=== PATIENT | male | born 1940 | race Caucasian/White ===

== ENCOUNTER 2016-11-21 19:48 | Inpatient (IN) ==
[2016-11-21] MEDS ORDERED: Ipratropium/Albuterol Neb 3 ML IH ONE (20:13)
--- NOTE | 2016-11-21 20:15 | Emergency Department Note ---
Disposition Clinical Impression: Acute exacerbation of chronic obstructive airways disease, Congestive heart failure, Chest pain Disposition: Admitted As Inpatient Condition: Good Referrals: NO,PCP [Primary Care Provider] - Forms: ED Satisfaction Letter Time of Disposition: 22:29 General Adult HPI - General Chief complaint: ED Shortness of Breath/Dyspnea Stated complaint: "CP/SOB" Time Seen by Provider: 11/21/16 20:08 Source: patient, family Mode of arrival: ambulatory Limitations: no limitations Nursing Notes Reviewed: Yes Vital Signs Reviewed: Yes - History of Present Illness HPI Narrative: This is a 76-year-old male who presents with chest tightness, congestion, and a productive cough. Patient is not running any fevers. Pt does have body aches. Patient states he has been feeling bad since Monday but has gotten worse. Patient is also undergoing extensive testing with his right lower extremity he had vein stripping with Dr. 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 Onset (ago): day(s) Pain Scale: 8 - Related Data Home Medications Medication Instructions Recorded Confirmed Citalopram [CeleXA] 40 mg PO DAILY 05/12/15 11/21/16 Clopidogrel [Plavix] 75 mg PO DAILY 05/12/15 11/21/16 Nitroglycerin [Nitrostat] 0.4 mg SL Q5M PRN 05/12/15 11/21/16 Aspirin Enteric Coated [Aspirin EC] 81 mg PO DAILY 05/23/15 11/21/16 Lipase/Protease/Amylase 6,000 unit PO TID 05/23/15 11/21/16 [Pancrelipase Dr 5,000 Unit Cap] Metoprolol [Lopressor] 25 mg PO BID 12/17/15 11/21/16 Promethazine [Phenergan] 25 mg PO TID PRN 12/17/15 11/21/16 Albuterol Sulfate [Proair 1 puff IN Q6H PRN 06/03/16 11/21/16 Respiclick] Omeprazole [PriLOSEC] 20 mg PO DAILY 06/03/16 11/21/16 Nystatin Cream [Mycostatin Cream] 1 appl TP BID 11/21/16 11/21/16 Oxycodone HCl [Oxycodone HCl] 15 mg PO Q6H PRN 11/21/16 11/21/16 Pentoxifylline [TRENtal] 400 mg PO BID 11/21/16 11/21/16 Previous Rx's Medication Instructions Recorded Alprazolam [Xanax 1 MG Tablet] 1 mg PO TID PRN #30 tablet 08/22/15 Allergies Allergy/AdvReac Type Severity Reaction Status Date / Time Hydromorphone AdvReac Hallucinati Verified 11/21/16 20:02 ng rosuvastatin [From Crestor] AdvReac Muscle Pain Verified 11/21/16 20:02 Gtwkkcg-[id number]-Ogs Reductase AdvReac Muscle Pain Verified 11/21/16 22:15 Inhibitor [Statins] All systems ED: reviewed and negative except as stated. Constitutional: Reports: weakness. Denies: fever, chills, weight change Eyes: Denies: eye pain, eye discharge, vision change ENT ED: Denies: ear pain, throat pain, dental pain, hearing loss, epistaxis, congestion, dysphagia Cardiovascular: Reports: chest pain. Denies: palpitations, dyspnea on exertion , edema, syncope Respiratory: Reports: cough, dyspnea, wheezes. Denies: hemoptysis, stridor Gastrointestinal: Denies: abdominal pain, nausea, vomiting, diarrhea, constipation, hematemesis, melena, hematochezia Genitourinary: Denies: urgency, dysuria, frequency, hematuria Musculoskeletal: Reports: myalgia, other (chronic RLE pain). Denies: back pain , neck pain, arthralgia Integumentary: Denies: rash, abrasion, lesions Neurological: Denies: headache, weakness, numbness, paresthesias, confusion, abnormal gait, vertigo Psychiatric: Denies: anxiety, depression, suicidal thoughts, homicidal thoughts , auditory hallucinations, visual hallucinations Endocrine: Reports: fatigue Hematological/Lymphatic: Denies: easy bleeding, easy bruising Allergic/Immunologic: Denies: facial swelling, urticaria Past Medical History - Past Medical History Attestation: Yes The following information was validated with the patient. Source: patient Medical history: Reports: arthritis, atrial fibrillation, cancer, CHF, COPD, coronary artery disease, DVT, diabetes, GERD, hyperlipidemia, hypertension, myocardial infarction, peripheral artery disease, pulmonary embolus, venous stasis, other Surgical history: Reports: angioplasty/stent, coronary bypass (CABG), LE vascular intervention, vascular surgery, other Psychiatric history: Reports: anxiety, depression - Social History Smoking Status: Former smoker Smokeless Tobacco Status: No Alcohol use: Reports: none Drug use: Reports: none Physical Exam - General Limitations: no limitations General appearance: alert, other (appears uncomfortable) - Head Head exam: atraumatic, normocephalic, normal inspection - Eye Eye exam: Present: normal appearance, PERRL, EOMI - ENT ENT exam: normal exam, normal oropharynx, mucous membranes moist - Expanded ENT Exam External ear exam: Present: normal external inspection Mouth exam: Present: normal external inspection Teeth exam: Present: normal inspection Throat exam: Present: normal inspection - Neck Neck exam: Present: normal inspection, full ROM, trachea midline - Chest Chest inspection: Present: normal inspection, symmetric chest wall rise - Respiratory Respiratory exam: Present: wheezes, other (rhonchi) - Cardiovascular Cardiovascular exam: Present: regular rate, normal rhythm, normal heart sounds - Abdominal Exam Abdominal exam: Present: soft, Non-Tender. Absent: tenderness, distention, guarding, rebound, rigidity - Extremities Exam Extremities exam: Present: full ROM, tenderness (chronic to RLE and R leg is wrapped) - Expanded Upper Extremity Exam Shoulder exam: Present: normal inspection, full ROM Arm exam: Present: normal inspection, full ROM Elbow exam: Present: normal inspection, full ROM Forearm/Wrist exam: Present: normal inspection, full ROM Hand exam: Present: normal inspection, full ROM Vascular exam: Normal: capillary refill, radial pulse - Back Exam Back exam: Present: normal inspection, full ROM. Absent: tenderness - Neurological Exam Neurological exam: Present: alert, oriented X3 - Expanded Neurological Exam Patient oriented to: Present: person, place, time Coma Scale Eye Opening: Spontaneous Coma Scale Motor Response: Obeys Commands Coma Scale Verbal Response: Oriented Coma Scale Total: 15 - Psychiatric Psychiatric exam: Present: normal affect, normal mood - Skin Skin exam: Present: warm, dry, intact, normal color Course - Consultations Consultation #1: I spoke with the hospitalist Dr. Brennon lawsonay to admit. Time: 22:28 Vital Signs Temperature 98.0 F 11/21/16 19:57 Pulse Rate 66 11/21/16 19:57 Respiratory Rate 20 11/21/16 19:57 Blood Pressure 126/79 11/21/16 19:57 O2 Sat by Pulse Oximetry 98 11/21/16 19:57 Temperature 98.0 F 11/21/16 19:57 Pulse Rate 66 11/21/16 19:57 Respiratory Rate 18 11/21/16 20:30 Blood Pressure 126/79 11/21/16 19:57 O2 Sat by Pulse Oximetry 97 11/21/16 20:30 Oxygen Delivery Oxygen Delivery Room Air Medical Decision Making - Medical Records Medical records reviewed: Yes I reviewed the patient's medical records. - Lab Data Lab results reviewed: Yes I reviewed the patient's lab results. Result diagrams: 11/21/16 20:10 11/21/16 20:10 Lab Results 11/21/16 11/21/16 11/21/16 Range/Units 20:10 20:10 20:10 WBC 5.5 (4.3-11.1) K/mcL RBC 4.24 (4.19-5.50) M/mcL Hgb 12.7 L (12.9-16.9) g/dL Hct 40.0 (37.5-50.1) % MCV 94.3 (83.0-100.0) fL MCH 30.0 (28.0-33.3) pg MCHC 31.8 (31.6-35.5) g/dL RDW 13.0 (11.5-14.5) % Plt Count 187 (140-400) K/mcL MPV 10.5 (9.4-12.4) fL Immature Gran % 0.2 (0-4) % Seg Neutrophils % 57.3 % Lymphocytes % 27.7 % Monocytes % 9.6 % Eosinophils % 4.7 % Basophils % 0.5 % Neutrophils # 3.2 (1.6-8.9) K/mcL Lymphocytes # 1.5 (0.6-4.6) K/mcL Monocytes # 0.5 (0.0-1.3) K/mcL Eosinophils # 0.3 (0.0-0.6) K/mcL Basophils # 0.0 (0.0-0.2) K/mcL Immature Plt Fraction 7.0 H (1.1-6.1) % PT 12.8 H (9.4-12.1) Seconds INR 1.2 APTT 31.3 (26.0-36.0) Seconds Sodium 139 (136-145) mEq/L Potassium 4.9 H (3.5-4.5) mEq/L Chloride 105 (98-109) mEq/L Carbon Dioxide 27 (19-29) mEq/L BUN 23 (8-26) mg/dL Creatinine 1.39 H (0.72-1.25) mg/dL Est GFR ( Amer) > 60 (> 60) Est GFR (Non-Af Amer) 50 L (> 60) BUN/Creatinine Ratio 17 (6-26) Glucose 78 (70-99) mg/dL Calculated Osmolality 291 (280-300) Calcium 9.5 (8.6-10.8) mg/dL Troponin I (0-0.03) ng/mL B-Natriuretic Peptide (0-100) pg/mL 11/21/16 11/21/16 Range/Units 20:10 20:38 WBC (4.3-11.1) K/mcL RBC (4.19-5.50) M/mcL Hgb (12.9-16.9) g/dL Hct (37.5-50.1) % MCV (83.0-100.0) fL MCH (28.0-33.3) pg MCHC (31.6-35.5) g/dL RDW (11.5-14.5) % Plt Count (140-400) K/mcL MPV (9.4-12.4) fL Immature Gran % (0-4) % Seg Neutrophils % % Lymphocytes % % Monocytes % % Eosinophils % % Basophils % % Neutrophils # (1.6-8.9) K/mcL Lymphocytes # (0.6-4.6) K/mcL Monocytes # (0.0-1.3) K/mcL Eosinophils # (0.0-0.6) K/mcL Basophils # (0.0-0.2) K/mcL Immature Plt Fraction (1.1-6.1) % PT (9.4-12.1) Seconds INR APTT (26.0-36.0) Seconds Sodium (136-145) mEq/L Potassium (3.5-4.5) mEq/L Chloride (98-109) mEq/L Carbon Dioxide (19-29) mEq/L BUN (8-26) mg/dL Creatinine (0.72-1.25) mg/dL Est GFR ( Amer) (> 60) Est GFR (Non-Af Amer) (> 60) BUN/Creatinine Ratio (6-26) Glucose (70-99) mg/dL Calculated Osmolality (280-300) Calcium (8.6-10.8) mg/dL Troponin I 0.00 (0-0.03) ng/mL B-Natriuretic Peptide 605 H (0-100) pg/mL - Radiology Data Radiology results reviewed: Yes I reviewed the patient's radiology results. - EKG Data EKG #1 EKG attestation: Yes I reviewed and interpreted this EKG. EKG shows normal: sinus rhythm Rate: normal Rhythm: NSR, PAC's Portia/QRS: RBBB Interpretation: nonspecific ST-T wave changes
[2016-11-21] MEDS ORDERED: Aspirin 325 MG TABLET PO ONE (20:17)
[2016-11-21 20:19] LABS: Basophils % 0.5 %; Eosinophils # 0.3 K/mcL (0.0-0.6); Eosinophils % 4.7 %; Hemoglobin 12.7 g/dL (12.9-16.9); Immature Granulocytes % 0.2 % (0-4); Lymphocytes # 1.5 K/mcL (0.6-4.6); Lymphocytes % 27.7 %; Mean Corpuscular HGB Conc 31.8 g/dL (31.6-35.5); Mean Corpuscular Volume 94.3 fL (83.0-100.0); Mean Platelet Volume 10.5 fL (9.4-12.4); Monocytes # 0.5 K/mcL (0.0-1.3); Monocytes % 9.6 %; Neutrophils # 3.2 K/mcL (1.6-8.9); Platelet Count 187 K/mcL (140-400); Red Blood Count 4.24 M/mcL (4.19-5.50); Segmented Neutrophils % 57.3 %
[2016-11-21 20:26] LABS: INR 1.2; Prothrombin Time 12.8 Seconds (9.4-12.1)
[2016-11-21 20:29] LABS: Activated Partial Thrombo Time 31.3 Seconds (26.0-36.0)
[2016-11-21 20:31] LABS: BUN/Creatinine Ratio 17 (6-26); Blood Urea Nitrogen 23 mg/dL (8-26); Calcium 9.5 mg/dL (8.6-10.8); Carbon Dioxide 27 mEq/L (19-29); Chloride 105 mEq/L (98-109); Glucose 78 mg/dL (70-99); Osmolality,Calculated 291 (280-300); Potassium 4.9 mEq/L (3.5-4.5); Sodium 139 mEq/L (136-145); eGFR For African Americans > 60 (> 60); eGFR For Non-African Americans 50 (> 60)
[2016-11-22] MEDS ORDERED: D5% in Water 1,000 ML IVC PRN (04:31)
[2016-11-22] MEDS ORDERED: Ondansetron 4 MG/2 ML VIAL IVP PRN (04:31)
[2016-11-22] MEDS ORDERED: *HR* Dextrose 50 % in Water (Syg) 50 ML SYRINGE IVP PRN (04:31)
[2016-11-22] MEDS ORDERED: Naloxone 0.4 MG/ML INJ IVP PRN (04:31)
[2016-11-22] MEDS ORDERED: Dextrose Gel 15 GM PO PRN ×2 (04:31)
[2016-11-22] MEDS ORDERED: Acetaminophen 325 MG TABLET PO PRN ×2 (04:31→13:07)
--- NOTE | 2016-11-22 04:31 | Pulmonology History & Physical ---
Date of Encounter: 11/22/16 Time of Encounter: 04:00 Assessment and Plan (1) Respiratory infection Current visit: Yes Status: Acute (2) CKD (chronic kidney disease), stage III Current visit: No Status: Acute (3) COPD (chronic obstructive pulmonary disease) Current visit: No Status: Acute Qualifiers: (4) DVT prophylaxis Current visit: No Status: Acute (5) Dyspnea Current visit: No Status: Acute Qualifiers: (6) Hyperkalemia Current visit: No Status: Acute (7) Ulcer of right lower extremity Current visit: No Status: Chronic Qualifiers: History of Present Illness HPI: Mr. Ham is a 76 year old male Past Med Surg Social Fam HX - Past Medical History Medical history: arthritis, atrial fibrillation, cancer, CHF, COPD, coronary artery disease, DVT, diabetes, GERD, hyperlipidemia, hypertension, myocardial infarction, peripheral artery disease, pulmonary embolus, venous stasis, other Psychiatric history: anxiety, depression - Past Surgical History Surgical History: angioplasty/stent, coronary bypass (CABG), LE vascular intervention, vascular surgery, other - Social History Smoking Status: Former smoker Smokeless Tobacco Status: No Alcohol use: none Drug use: none - Family History Mother Adopted: No Family Member Ethnicity: Non- Living Status: Hx Family Cardiac Disorders: No Hx Family Respiratory Disorders: No Hx Family Cancer: No Hx Family GI Disorders: No Hx Family Endocrine Disorder: No Hx Family Neuromuscular Disorders: No Hx Family Neurologic Disorders: No Hx Family HEENT Disorders: No Hx Family Autoimmune Disorders: No Medications and Allergies Citalopram [CeleXA] 40 mg PO DAILY 05/12/15 [History] Clopidogrel [Plavix] 75 mg PO DAILY 05/12/15 [History] Nitroglycerin [Nitrostat] 0.4 mg SL Q5M PRN 05/12/15 [History] Aspirin Enteric Coated [Aspirin EC] 81 mg PO DAILY 05/23/15 [History] Lipase/Protease/Amylase [Pancrelipase Dr 5,000 Unit Cap] 6,000 unit PO TID 05/23 [History] Alprazolam [Xanax 1 MG Tablet] 1 mg PO TID PRN #30 tablet 08/22/15 [Rx] Metoprolol [Lopressor] 25 mg PO BID 12/17/15 [History] Promethazine [Phenergan] 25 mg PO TID PRN 12/17/15 [History] Albuterol Sulfate [Proair Respiclick] 1 puff IN Q6H PRN 06/03/16 [History] Omeprazole [PriLOSEC] 20 mg PO DAILY 06/03/16 [History] Nystatin Cream [Mycostatin Cream] 1 appl TP BID 11/21/16 [History] Oxycodone HCl [Oxycodone HCl] 15 mg PO Q6H PRN 11/21/16 [History] Pentoxifylline [TRENtal] 400 mg PO BID 11/21/16 [History] Allergies Hydromorphone Adverse Reaction (Verified 11/21/16 20:02) Hallucinating rosuvastatin [From Crestor] Adverse Reaction (Verified 11/21/16 20:02) Muscle Pain Fzsgfrw-Zeo-Ceh Reductase Inhibitor [Statins] Adverse Reaction (Verified 22:15) Muscle Pain All Systems: A 10-system review of systems was performed and is negative for pertinent findings except as documented above in the HPI. Physical Examination Vital Signs: Vital Signs, Last 4 Hours Temp Pulse Resp BP Pulse Ox 11/22/16 00:55 97.9 F 66 18 169/89 96 Results - Laboratory Findings CBC and BMP: 11/21/16 20:10 11/21/16 20:10 PT/INR, D-dimer PT 12.8 Seconds (9.4-12.1) H 11/21/16 20:10 Abnormal lab findings: Abnormal lab results Hgb 12.7 g/dL (12.9-16.9) L 11/21/16 20:10 Immature Plt Fraction 7.0 % (1.1-6.1) H 11/21/16 20:10 PT 12.8 Seconds (9.4-12.1) H 11/21/16 20:10 Potassium 4.9 mEq/L (3.5-4.5) H 11/21/16 20:10 Creatinine 1.39 mg/dL (0.72-1.25) H 11/21/16 20:10 Est GFR (Non-Af Amer) 50 (> 60) L 11/21/16 20:10 B-Natriuretic Peptide 605 pg/mL (0-100) H 11/21/16 20:38
[2016-11-22] MEDS ORDERED: Sennosides/Docusate Sodium TABLET PO PRN (04:47)
[2016-11-22] MEDS ORDERED: Ipratropium/Albuterol Neb 3 ML IH PRN (04:47)
[2016-11-22] MEDS ORDERED: Benzonatate 100 MG CAPSULE PO PRN (04:50)
[2016-11-22] MEDS ORDERED: Azithromycin 500 MG in D5% in Water 250 ML IVPB SCH (05:00)
[2016-11-22 05:09] LABS: Bilirubin,Urine Negative (Negative); Blood,Urine Negative (Negative); Clarity,Urine Clear (Clear); Color,Urine Yellow (Yellow); Glucose,Urine (UA) Normal (Normal); Ketones,Urine Negative (Negative); Leukocyte Esterase,Urine Negative (Negative); Nitrite,Urine Negative (Negative); Protein,Urine Negative (Neg-Trace); Specific Gravity,Urine 1.017 (1.010-1.025); Urobilinogen,Urine Normal (Normal)
--- NOTE | 2016-11-22 05:12 | Internal Med History&Physical ---
Date of Encounter: 11/22/16 Time of Encounter: 04:00 Assessment and Plan (1) Dyspnea Current visit: No Status: Acute Patient current dyspnea likely multifactorial from respiratory infection acute exacerbation COPD as well as possible contribution from CHF. We will obtain echocardiogram 20 mg Lasix daily We will obtain viral respiratory culture Sputum culture Scheduled and as needed DuoNeb's 40 mg prednisone daily Tylenol as needed for pain or fever We will continue to monitor with telemetry Qualifiers: Dyspnea type: unspecified Qualified Code(s): R06.00 - Dyspnea, unspecified (2) Congestive heart failure Current visit: Yes Status: Acute Although chest x-ray negative for acute process, concern for vascular congestion seen on chest x-ray. Patient has supposedly history of CHF, but no recent echocardiograms seen on file. Could possibly contributing to patient's shortness of breath. No current complaint of orthopnea We will give 20 mg IV Lasix daily We will obtain echocardiogram Qualifiers: Congestive heart failure type: unspecified congestive heart failure type Congestive heart failure chronicity: unspecified congestive heart failure chronicity Qualified Code(s): I50.9 - Heart failure, unspecified (3) Respiratory infection Current visit: Yes Status: Acute Patient likely has viral infection contributing to current shortness of breath and acute exacerbation COPD. Chest x-ray negative for pneumonia, no crackles auscultated on exam. Plan as above (4) COPD (chronic obstructive pulmonary disease) Current visit: No Status: Acute Patient has history of COPD, current infection causing increased cough and wheezing causing exacerbation. Although likely viral. No home oxygen usage, likely mild exacerbation. Plan as above Qualifiers: COPD type: unspecified COPD Qualified Code(s): J44.9 - Chronic obstructive pulmonary disease, unspecified (5) Hyperkalemia Current visit: No Status: Acute Patient has hyperkalemia of 4.9, no concerning findings were seen on EKG. Patient will be given DuoNeb treatments because of his current respiratory infection, likely potassium will be driven inward. Patient will be monitored on telemetry and meantime. We will continue to monitor potassium level with daily chemistry (6) CKD (chronic kidney disease), stage III Current visit: No Status: Acute Patient has chronic kidney disease stage III, current creatinine of 1.39 is not far from his michell We will continue to monitor kidney function with daily chemistry (7) Ulcer of right lower extremity Current visit: No Status: Chronic Patient receiving wound care for chronic ulcer on right lower extremity. Per previous wound care recommendations Qualifiers: Non-pressure ulcer stage: unspecified non-pressure ulcer stage Qualified Code(s): L97.919 - Non-pressure chronic ulcer of unspecified part of right lower leg with unspecified severity (8) DVT prophylaxis Current visit: No Status: Acute 5000 units heparin subcutaneous 3 times a day (9) Diabetes mellitus Current visit: Yes Status: Suspected Patient has supposedly history of diabetes mellitus, patient denies this. We suspected history of diabetes and he will be started on steroids for respiratory infection, this will likely cause some hyperglycemia. Before meals at bedtime glucose checks Low-dose sliding scale insulin Qualifiers: Diabetes mellitus type: type 2 Diabetes mellitus complication status: with unspecified complications Diabetes mellitus correction insulin use: without correction use Qualified Code(s): E11.8 - Type 2 diabetes mellitus with unspecified complications Internal Medicine - H&P: HPI Chief complaint: Increased cough and wheeze Admitted From: Home Plans for Post Hospital Care: Home History of present illness: Mr. Ham is a 76 year old male with prior medical history significant for chronic kidney disease stage III, atrial fibrillation, reported CHF, COPD, CAD, hypertension, hyperlipidemia, chronic lower shampooing, prior PE who presented to [facility] after 4 days of worsening coughing, wheezing, and chest pain. He reports that it felt like she had a bad cold. He reports the chest pain had been worsening the prompted his presentation to the hospital tonight. He states the chest pain occurs only when he is coughing, but was unable to describe the exact location [place] feels like exactly. He states the wheezing has gotten so bad that is keeping his up at night. He does report that all symptoms were alleviated after being given a breathing treatment in the emergency room. He denies lightheadedness, denies sick contacts, denies fever/chills, denies nausea/vomiting, denies diarrhea/constipation, denies dysuria, denies hematuria , denies hematochezia. He denies having any sick contacts or travel recently. Past Med Surg Social Fam HX - Past Medical History Medical history: arthritis, atrial fibrillation, cancer, CHF, COPD, coronary artery disease, DVT, diabetes, GERD, hyperlipidemia, hypertension, myocardial infarction, peripheral artery disease, pulmonary embolus, venous stasis, other Psychiatric history: anxiety, depression - Past Surgical History Surgical History: angioplasty/stent, coronary bypass (CABG), LE vascular intervention, vascular surgery, other - Social History Smoking Status: Former smoker Smokeless Tobacco Status: No Alcohol use: none Drug use: none - Family History Mother Adopted: No Family Member Ethnicity: Non- Living Status: Hx Family Cardiac Disorders: No Hx Family Respiratory Disorders: No Hx Family Cancer: No Hx Family GI Disorders: No Hx Family Endocrine Disorder: No Hx Family Neuromuscular Disorders: No Hx Family Neurologic Disorders: No Hx Family HEENT Disorders: No Hx Family Autoimmune Disorders: No Internal Medicine - H&P: Meds Citalopram [CeleXA] 40 mg PO DAILY 05/12/15 [History] Clopidogrel [Plavix] 75 mg PO DAILY 05/12/15 [History] Nitroglycerin [Nitrostat] 0.4 mg SL Q5M PRN 05/12/15 [History] Aspirin Enteric Coated [Aspirin EC] 81 mg PO DAILY 05/23/15 [History] Lipase/Protease/Amylase [Pancrelipase Dr 5,000 Unit Cap] 6,000 unit PO TID 05/23 [History] Alprazolam [Xanax 1 MG Tablet] 1 mg PO TID PRN #30 tablet 08/22/15 [Rx] Metoprolol [Lopressor] 25 mg PO BID 12/17/15 [History] Promethazine [Phenergan] 25 mg PO TID PRN 12/17/15 [History] Albuterol Sulfate [Proair Respiclick] 1 puff IN Q6H PRN 06/03/16 [History] Omeprazole [PriLOSEC] 20 mg PO DAILY 06/03/16 [History] Nystatin Cream [Mycostatin Cream] 1 appl TP BID 11/21/16 [History] Oxycodone HCl [Oxycodone HCl] 15 mg PO Q6H PRN 11/21/16 [History] Pentoxifylline [TRENtal] 400 mg PO BID 11/21/16 [History] Allergies Hydromorphone Adverse Reaction (Verified 11/21/16 20:02) Hallucinating rosuvastatin [From Crestor] Adverse Reaction (Verified 11/21/16 20:02) Muscle Pain Tqovqww-Jyi-Eoc Reductase Inhibitor [Statins] Adverse Reaction (Verified 22:15) Muscle Pain - Constitutional Constitutional: as per HPI, no chills, no fatigue, no fever(s), no weakness - EENT Eyes: no change in vision, no discharge, no pain, no photophobia Nose, mouth and throat: no dysphagia, no nasal discharge, no neck pain, no sore throat - Cardiovascular Cardiovascular ROS IM: as per HPI, chest pain, dyspnea, no diaphoresis, no edema , no lightheadedness, no orthopnea, no palpitations - Respiratory Respiratory: as per HPI, cough, dyspnea, wheezing, pain with cough, no hemoptysis, no dyspnea on exertion, no pain on inspiration, no chest congestion , no change in phlegm color - Gastrointestinal Gastrointestinal: no abdominal pain, no diarrhea, no hematemesis, no hematochezia, no melena, no nausea, no vomiting - Musculoskeletal Musculoskeletal ROS IM: no numbness, no tingling - Integumentary Integumentary IM: no rash, no unusual bruising - Neurological Neurological ROS: no confusion, no convulsions, no focal weakness, no numbness, no tingling, no tremor(s) - Constitutional Vitals: Temp Pulse Resp BP Pulse Ox 98.6 F 68 18 133/78 95 11/22/16 04:31 11/22/16 04:31 11/22/16 04:31 11/22/16 04:31 11/22/16 04:31 Exam: General: Cooperative, pleasant, no acute distress, alert and oriented 3, answers questions appropriately Head: Normocephalic, atraumatic Eye: Conjunctiva pink, sclera anicteric, EOMI, PERRL Neck: Supple, trachea midline Respiratory: No accessory muscle usage, good air movement, slight expiratory wheezes auscultated diffusely Cardiovascular: Regular rate and rhythm, S1 and S2 present, no murmurs/rubs/ gallops/clicks appreciated GI/abdominal: Nondistended, nontender, soft, normal bowel sounds, no peritoneal signs Extremities: No calf tenderness, noncyanotic, no pedal edema appreciated, warm, lower extremity pulses palpable and symmetrical, large birthmark on medial aspect of left lower leg, chronic cellulitic changes and erythema on medial part of right lower leg, chronic wound above heel on right lower leg Neurological: Alert and oriented 3, no facial droop, no focal deficits Skin: Dry, intact, normal color Internal Med - H&P Results - Labs CBC & Chem 7: 11/21/16 20:10 11/21/16 20:10 - EKG Data -: EKG Interpreted by Myself Rate: normal - EKG Data Prior EKG available for review: yes When compared to previous EKG: there is no significant change - Impressions Impressions Chest X-Ray 11/21/16 20:03 IMPRESSION: No acute cardiopulmonary disease. D/ / Francisco Montoya MD / Francisco Montoya MD Interpreting Provider: Francisco Montoya MD
[2016-11-22] MEDS ORDERED: Furosemide 20 MG/2 ML VIAL IVP ONE (05:13)
[2016-11-22] MEDS ORDERED: Nitroglycerin 0.4 MG TAB.SUBL SL PRN (05:53)
[2016-11-22] MEDS ORDERED: *HR* OxyCODONE Immed Rel 15 MG TABLET PO PRN (05:53)
[2016-11-22] MEDS ORDERED: ALPRAZolam 1 MG TABLET PO PRN ×2 (05:53→13:08)
[2016-11-22 07:20] LABS: Basophils % 0.6 %; Eosinophils # 0.3 K/mcL (0.0-0.6); Eosinophils % 4.6 %; Hematocrit 37.6 % (37.5-50.1); Hemoglobin 11.9 g/dL (12.9-16.9); Immature Granulocytes % 0.2 % (0-4); Lymphocytes # 1.2 K/mcL (0.6-4.6); Lymphocytes % 22.7 %; Mean Corpuscular HGB Conc 31.6 g/dL (31.6-35.5); Mean Corpuscular Hemoglobin 29.2 pg (28.0-33.3); Mean Corpuscular Volume 92.4 fL (83.0-100.0); Mean Platelet Volume 10.7 fL (9.4-12.4); Monocytes # 0.4 K/mcL (0.0-1.3); Neutrophils # 3.5 K/mcL (1.6-8.9); Platelet Count 145 K/mcL (140-400); Red Blood Count 4.07 M/mcL (4.19-5.50); Segmented Neutrophils % 64.9 %
[2016-11-22] MEDS: Ipratropium/Albuterol Neb 3 ML IH SCH ×2 (07:28→10:20)
[2016-11-22] MEDS: Insulin LISPRO 300 UNITS/3 ML VIAL SQ SCH ×2 (07:43→11:21)
[2016-11-22 07:44] LABS: Alanine Aminotransferase 11 Units/L (0-55); Albumin/Globulin Ratio 0.9 (1.1-2.2); Alkaline Phosphatase 120 Units/L (38-126); Aspartate Amino Transferase 10 Units/L (5-34); BUN/Creatinine Ratio 15 (6-26); Bilirubin,Total 0.6 mg/dL (0.2-1.2); Blood Urea Nitrogen 20 mg/dL (8-26); Calcium 9.4 mg/dL (8.6-10.8); Carbon Dioxide 25 mEq/L (19-29); Chloride 104 mEq/L (98-109); Globulin 3.3 g/dL (2.4-3.5); Glucose 109 mg/dL (70-99); Magnesium 1.4 mg/dL (1.6-2.6); Osmolality,Calculated 287 (280-300); Phosphorous 2.5 mg/dL (2.3-4.7); Potassium 4.3 mEq/L (3.5-4.5); Sodium 137 mEq/L (136-145); Total Protein 6.3 g/dL (6.0-8.3); eGFR For African Americans > 60 (> 60); eGFR For Non-African Americans 52 (> 60)
[2016-11-22] MEDS ORDERED: predniSONE 20 MG TABLET PO SCH (09:00)
[2016-11-22] MEDS ORDERED: Aspirin Enteric Coated 81 MG Tablet PO SCH (09:00)
[2016-11-22] MEDS ORDERED: Furosemide 20 MG/2 ML VIAL IVP SCH (09:00)
[2016-11-22 11:13] VITALS: BP 148/68
[2016-11-22] MEDS ORDERED: Albuterol 2.5 MG/3 ML NEBULIZER IH PRN (13:07)
[2016-11-22] MEDS ORDERED: *HR* Heparin 5,000 UNIT/ML VIAL SQ SCH (14:00)
--- NOTE | 2016-11-22 14:10 | Discharge Summary ---
Date of Encounter: 11/22/16 Time of Encounter: 14:08 - Discharge Diagnosis (1) Lower extremity ulceration Priority: Secondary Status: Acute Qualifiers: Laterality: right Non-pressure ulcer stage: limited to breakdown of skin Qualified Code(s): L97.911 - Non-pressure chronic ulcer of unspecified part of right lower leg limited to breakdown of skin (2) Acute exacerbation of chronic obstructive airways disease Priority: Primary Status: Acute (3) Congestive heart failure Priority: Secondary Status: Acute Qualifiers: Congestive heart failure type: unspecified congestive heart failure type Congestive heart failure chronicity: unspecified congestive heart failure chronicity Qualified Code(s): I50.9 - Heart failure, unspecified - Discharge Medications Prescriptions: PredniSONE 10 mg PO DAILY #5 tablet Home Medications: Citalopram [CeleXA] 40 mg PO DAILY 05/12/15 [History] Clopidogrel [Plavix] 75 mg PO DAILY 05/12/15 [History] Nitroglycerin [Nitrostat] 0.4 mg SL Q5M PRN 05/12/15 [History] Aspirin Enteric Coated [Aspirin EC] 81 mg PO DAILY 05/23/15 [History] Lipase/Protease/Amylase [Pancrelipase Dr 5,000 Unit Cap] 6,000 unit PO TID 05/23 [History] Alprazolam [Xanax 1 MG Tablet] 1 mg PO TID PRN #30 tablet 08/22/15 [Rx] Metoprolol [Lopressor] 25 mg PO BID 12/17/15 [History] Promethazine [Phenergan] 25 mg PO TID PRN 12/17/15 [History] Albuterol Sulfate [Proair Respiclick] 1 puff IN Q6H PRN 06/03/16 [History] Omeprazole [PriLOSEC] 20 mg PO DAILY 06/03/16 [History] Nystatin Cream [Mycostatin Cream] 1 appl TP BID 11/21/16 [History] Oxycodone HCl 15 mg PO Q6H PRN 11/21/16 [History] Pentoxifylline [TRENtal] 400 mg PO BID 11/21/16 [History] PredniSONE 10 mg PO DAILY #5 tablet 11/22/16 [Rx] Allergies/Adverse Reactions: Allergies Hydromorphone Adverse Reaction (Verified 11/21/16 20:02) Hallucinating rosuvastatin [From Crestor] Adverse Reaction (Verified 11/21/16 20:02) Muscle Pain Rhiqxvy-Wjb-Gdx Reductase Inhibitor [Statins] Adverse Reaction (Verified 22:15) Muscle Pain Date of admission: 11/22/16 05:55 Primary care physician: Nickolas Roca, Discharging clinician: Raine Agrawal Anticipated date of discharge: 11/22/16 - Patient Status Disposition: Home, Self-Care Condition: Good Functional capacity at discharge: independent ambulation - Discharge Instructions Instructions: Prednisone (By mouth), Chronic Obstructive Pulmonary Disease (DC) Follow Up With: Nickolas Roca, DO [Primary Care Provider] - 11/29/16 1:30 pm () - Diet and Activity Activity: resume usual activities as tolerated Diet: advance to your usual diet Interval History: Mr. Ham is a 76 year old male with prior medical history significant for chronic kidney disease stage III, atrial fibrillation, reported CHF, COPD, CAD, hypertension, hyperlipidemia, , prior PE who presented to [facility] after 4 days of worsening coughing, wheezing, and chest pain. He reports that it felt like she had a bad cold. he says that he was wheezing very bad but did not take his albuterol inhaler and does not have a nebulizer at home. He denies lightheadedness, denies sick contacts, denies fever/chills, denies nausea/vomiting, denies diarrhea/constipation, denies dysuria, denies hematuria , denies hematochezia. He denies having any sick contacts or travel recently. AT ED, CXR was done that showed no signs of heart failure or pneumonia. he was admitted for acute exacrebation of COPD. Legionella antigen and Streptococcus antigen was negative. He also tested negative for influenza A and B. he was treated with duonebs and was started on oral steroids and lasix. normally , he is only on albuterol inhaler and he uses it only occasionally and yesterday he did not rmemeber to use it. today, he has no wheezing and is sating >95% on RA. he prob had a COPD exacerbation. He was advised to use his rescue inhaler prn when sob. will dc him with 5 days of oral prednisone, will not add symbicort as he has mild intermittent disease. will also not add lasix at this time for risk of dehydration as he did not present with pulmonary edema. he is being dc in stable condition today and will f/u with his PCP. Hospital course: Mr. Ham is a 76 year old male Time spent discussing smoking cessation with patient: more than 10 minutes - Time Spent with Patient Total time spent providing and/or coordinating discharge services: Greater than 30 minutes - Constitutional Vitals: Temp Pulse Resp BP Pulse Ox 97.8 F 65 16 148/68 97 11/22/16 11:00 11/22/16 11:00 11/22/16 11:00 11/22/16 11:00 11/22/16 11:00 General appearance: Present: A&O X 3, no acute distress Exam: Head: Normocephalic, atraumatic Eye: Conjunctiva pink, sclera anicteric, EOMI, PERRL Neck: Supple, trachea midline Respiratory: No accessory muscle usage, good air movement, no wheezing Cardiovascular: Regular rate and rhythm, S1 and S2 present, no murmurs/rubs/ gallops/clicks appreciated GI/abdominal: Nondistended, nontender, soft, normal bowel sounds, no peritoneal signs Extremities: No calf tenderness, noncyanotic, no pedal edema appreciated, warm, lower extremity pulses palpable and symmetrical, large birthmark on medial aspect of left lower leg, chronic cellulitic changes and erythema on medial part of right lower leg, chronic wound above heel on right lower leg Neurological: Alert and oriented 3, no facial droop, no focal deficits Skin: Dry, intact, normal color
[2016-11-22] MEDS ORDERED: Insulin LISPRO 300 UNITS/3 ML VIAL SQ SCH (21:00)
--- NOTE | 2016-11-23 08:13 | Electrocardiograph Report ---
[address] [address] Test Date: 2016-11-21 Pat Name: Francisco Ham Department: 102 Room: 2A22 Gender: M Sql Database Developer: : 1940 Requested By: Bentley Bentley Order Number: [id number] Reading MD: Jose D Wahl MD Measurements Intervals [place] Rate: 60 P: 50 MO: 165 QRS: 106 QRSD: 147 T: 36 QT: 459 QTc: 459 Interpretive Statements SINUS RHYTHM WITH FREQUENT SUPRAVENTRICULAR PREMATURE COMPLEXES IN A BIGEMINAL PATTERN MARKED RIGHT AXIS DEVIATION RIGHT BUNDLE BRANCH BLOCK Electronically Signed On 11-23-2016 8:12:02 EDT by Jose D Wahl MD
== END 2016-11-22 14:28 | disposition home or self-care (01) | DRG 191 ==
LOC: EMEROO 19:48 → 2ANU 19:48
PROVIDERS: ADMIT Internal Medicine; ATTEND Internal Medicine

== ENCOUNTER 2019-04-09 16:04 | Inpatient (IN) ==
[2019-04-09 16:41] LABS: Basophils % 0.4 %; Eosinophils # 0.2 K/mcL (0.0-0.6); Eosinophils % 3.1 %; Hemoglobin 13.8 g/dL (12.9-16.9); Immature Granulocytes % 0.3 % (0-4); Lymphocytes # 1.2 K/mcL (0.6-4.6); Lymphocytes % 17.3 %; Mean Corpuscular HGB Conc 32.9 g/dL (31.6-35.5); Mean Corpuscular Volume 94.4 fL (83.0-100.0); Mean Platelet Volume 11.5 fL (9.4-12.4); Monocytes # 0.5 K/mcL (0.0-1.3); Monocytes % 6.6 %; Neutrophils # 4.9 K/mcL (1.6-8.9); Platelet Count 145 K/mcL (140-400); Red Blood Count 4.45 M/mcL (4.19-5.50); Red Cell Distribution Width 13.2 % (11.5-14.5); Segmented Neutrophils % 72.3 %; White Blood Count 6.8 K/mcL (4.3-11.1)
--- NOTE | 2019-04-09 16:55 | Emergency Department Note ---
Disposition Clinical Impression: Failure to thrive Qualifiers: Failure to thrive age range: in adult Qualified Code(s): R62.7 - Adult failure to thrive Disposition: Admitted As Inpatient Condition: Fair Time of Disposition: 18:01 General Adult HPI - General Stated complaint: weakness Time Seen by Provider: 04/09/19 16:07 Source: patient, EMS Mode of arrival: other Limitations: no limitations Nursing Notes Reviewed: Yes Vital Signs Reviewed: Yes - History of Present Illness HPI Narrative: 79M with significant PMhx that reports from his physician's office. His physician, Dr. Roca, reports that the patient will need to be admitted so he can go to a usp. The patient states that he is here because he's lost 18lbs over the last five months and that everything hurts. Pt states he lives alone, that his daughter manages his medications and she works in his doctor's office. Pt complaints of base-line chest pain that he has all the time, SOB that is also chronic, pain in bilateral legs s/p revascularization surgery, and weakness in his legs that has been going on for several months. Reportedly, the patient has not left his house in several months, although a chart review shows a doctors appointment in August of this year. Pain Scale: 0 - Related Data Home Medications Medication Instructions Recorded Confirmed Citalopram [CeleXA] 40 mg PO DAILY 05/12/15 09/21/18 Nitroglycerin [Nitrostat] 0.4 mg SL Q5M PRN 05/12/15 09/21/18 Aspirin Enteric Coated [Aspirin EC] 81 mg PO DAILY 05/23/15 09/21/18 Metoprolol [Lopressor] 25 mg PO BID 12/17/15 09/21/18 Omeprazole [PriLOSEC] 20 mg PO DAILY 06/03/16 09/21/18 Nystatin Cream [Mycostatin Cream] 1 appl TP BID PRN 11/21/16 09/21/18 Oxycodone HCl 15 mg PO Q6H PRN 11/21/16 09/21/18 Pentoxifylline [TRENtal] 400 mg PO BID 11/21/16 09/21/18 Clopidogrel [Plavix] 75 mg PO DAILY 09/21/18 09/21/18 Docusate Sodium [Dok] 100 mg PO BID PRN 09/21/18 09/21/18 Lipase/Protease/Amylase [Rianna Szymanski 6,000 unit PO QAM 09/21/18 09/21/18 6,000 Units Capsule] Lipase/Protease/Amylase [Rianna Szymanski 12,000 unit PO QPM 09/21/18 09/21/18 6,000 Units Capsule] Oxybutynin Chloride [Ditropan Xl] 10 mg PO DAILY 09/21/18 09/21/18 Previous Rx's Medication Instructions Recorded ALPRAZolam [Xanax 1 MG Tablet] 1 mg PO TID PRN #30 tablet 08/22/15 Allergies Allergy/AdvReac Type Severity Reaction Status Date / Time hydromorphone [Hydromorphone] AdvReac Hallucinati Verified 09/19/18 21:02 ng rosuvastatin [From Crestor] AdvReac Muscle Pain Verified 09/19/18 21:02 Lorhrgl-Fjb-Enf Reductase AdvReac Muscle Pain Verified 09/19/18 21:02 Inhibitor [Statins] Review of Systems: In addition to that documented in the HPI above, the additional ROS was obtained: Constitutional: Denies fevers or chills Eyes: Denies vision changes ENMT: Denies sore throat CV: Reports chest pain Resp: Reports SOB GI: Denies vomiting or diarrhea : Denies painful urination MSK: Denies recent trauma Skin: Reports rashes on his legs that are painful Neuro: Denies new numbness or tingling Reports weakness in yaw legs Endocrine: Reports unexpected weight loss of 18lbs over the last few months Heme: Denies bleeding disorders Past Medical History - Past Medical History Attestation: Yes The following information was validated with the patient. Medical history: Reports: COPD, hyperlipidemia, hypertension, myocardial infarction Surgical history: Reports: angioplasty/stent, coronary bypass (CABG), LE vascular intervention, vascular surgery, other Psychiatric history: Reports: anxiety, depression - Social History Smoking Status: Former smoker Smokeless Tobacco Status: No Alcohol use: Reports: none Drug use: Reports: none Physical Exam General: A&O x 2 - person and place, but not time. No acute distress. Well developed, well nourished. Head: atraumatic, normocephalic. ENT: No conjunctival injection, no scleral icterus. PERRLA. EOMI. Oropharynx non- erythematous. mucous membranes moist. Neuro: No focal deficits, no speech deficit, no facial droop, mentating well. Pulm: Lungs CTAB A/P. No wheezes, rales, ronchi. Cardio: Irregularly irregular heart rate. Chest not tender to palpation. Abd: Soft, non-distended. Normoactive bowel sounds. Non-tender to palpation. No guarding. Non rigid. Extremities: Radial pulses 2+ yaw, no palpable pulses in lower extremities, but lower extremities are warm and well perfused. Vascular insufficiency rashes on yaw LE. Skin: warm, dry, multiple different skin abnormalities present Psych: Appropriate mood and affect. Answers questions appropriately. Cooperative with exam. - General Limitations: no limitations General appearance: alert Course Vital Signs Temperature 98.6 F 04/09/19 16:12 Pulse Rate 61 04/09/19 16:12 Respiratory Rate 18 04/09/19 16:12 Blood Pressure 204/99 04/09/19 16:12 O2 Sat by Pulse Oximetry 98 04/09/19 16:12 Temperature 98.6 F 04/09/19 16:12 Pulse Rate 61 04/09/19 16:12 Respiratory Rate 18 04/09/19 16:12 Blood Pressure 204/99 04/09/19 16:12 O2 Sat by Pulse Oximetry 98 04/09/19 16:12 Oxygen Delivery Oxygen Delivery Room Air Medical Decision Making - [facility] Narrative Medical decision making narrative: 1700: 79M with complicated Pmhx that presents after his PCP sent him here for admission due to 18lbs weight loss and possible inability to care for self. Will obtain screening labs. 1801: Pt had HTN and was given a dose of his night medication. UA showed leukocyte esterase which, when considered with his active prostate cancer, could be a UTI. Pt was admitted to hospitalist, Dr. Samano, who agreed to accept the patient to her service. [employer]ING Paige Winter spoke with patient and family and family reports that patient has difficulty taking his medication as prescribed, falls every 3-4 days, and is complaining of Rt Arm numbness that has been going on for a while, and has a Hx of DVTs. Pt would benefit from further inpatient w orkup for his complaint of all over pain, and for placement with a snf care facility. Pt remained stable while in the department. - Medical Records Medical records reviewed: Yes I reviewed the patient's medical records. - Lab Data Lab results reviewed: Yes I reviewed the patient's lab results. Result diagrams: 04/09/19 16:17 04/09/19 16:17 Lab Results 04/09/19 04/09/19 04/09/19 Range/Units 16:17 16:17 16:17 WBC 6.8 (4.3-11.1) K/mcL RBC 4.45 (4.19-5.50) M/mcL Hgb 13.8 (12.9-16.9) g/dL Hct 42.0 (37.5-50.1) % MCV 94.4 (83.0-100.0) fL MCH 31.0 (28.0-33.3) pg MCHC 32.9 (31.6-35.5) g/dL RDW 13.2 (11.5-14.5) % Plt Count 145 (140-400) K/mcL MPV 11.5 (9.4-12.4) fL Immature Gran % 0.3 (0-4) % Seg Neutrophils % 72.3 % Lymphocytes % 17.3 % Monocytes % 6.6 % Eosinophils % 3.1 % Basophils % 0.4 % Neutrophils # 4.9 (1.6-8.9) K/mcL Lymphocytes # 1.2 (0.6-4.6) K/mcL Monocytes # 0.5 (0.0-1.3) K/mcL Eosinophils # 0.2 (0.0-0.6) K/mcL Basophils # 0.0 (0.0-0.2) K/mcL Sodium 137 (136-145) mEq/L Potassium 4.4 (3.5-5.1) mEq/L Chloride 106 (98-107) mEq/L Carbon Dioxide 24 (23-29) mEq/L BUN 32 H (8-23) mg/dL Creatinine 1.52 H (0.70-1.30) mg/dL Est GFR ( Amer) 54 L (> 60) Est GFR (Non-Af Amer) 45 L (> 60) BUN/Creatinine Ratio 21 (6-26) Glucose 94 (70-105) mg/dL Calculated Osmolality 291 (280-300) Calcium 9.9 (8.6-10.3) mg/dL Magnesium 1.6 (1.6-2.6) mg/dL Total Bilirubin 0.6 (0.3-1.0) mg/dL Direct Bilirubin 0.1 (0.0-0.2) mg/dL Indirect Bilirubin 0.5 (0.0-1.2) mg/dL AST 14 (13-39) Units/L ALT 9 (7-52) Units/L Alkaline Phosphatase 131 H (34-104) Units/L Ammonia 34 (16-53) mcmol/L Creatine Kinase 56 (30-223) Units/L Troponin I < 0.03 (< 0.04) ng/mL Serum Total Protein 7.2 (6.4-8.9) g/dL Albumin 4.2 (3.5-5.7) g/dL Globulin 3.0 (2.4-3.5) g/dL Albumin/Globulin Ratio 1.4 (1.1-2.2) Lipase 19 (11-82) Units/L Urine Color (Yellow) Urine Clarity (Clear) Urine pH (5.0-8.0) pH Units Ur Specific [place] (1.010-1.025) Urine Protein (Neg-Trace) mg/dL Urine Glucose (UA) (Normal) mg/dL Urine Ketones (Negative) mg/dL Urine Blood (Negative) Urine Nitrite (Negative) Urine Bilirubin (Negative) Urine Urobilinogen (Normal) mg/dL Ur Leukocyte Esterase (Negative) 04/09/19 Range/Units 17:15 WBC (4.3-11.1) K/mcL RBC (4.19-5.50) M/mcL Hgb (12.9-16.9) g/dL Hct (37.5-50.1) % MCV (83.0-100.0) fL MCH (28.0-33.3) pg MCHC (31.6-35.5) g/dL RDW (11.5-14.5) % Plt Count (140-400) K/mcL MPV (9.4-12.4) fL Immature Gran % (0-4) % Seg Neutrophils % % Lymphocytes % % Monocytes % % Eosinophils % % Basophils % % Neutrophils # (1.6-8.9) K/mcL Lymphocytes # (0.6-4.6) K/mcL Monocytes # (0.0-1.3) K/mcL Eosinophils # (0.0-0.6) K/mcL Basophils # (0.0-0.2) K/mcL Sodium (136-145) mEq/L Potassium (3.5-5.1) mEq/L Chloride (98-107) mEq/L Carbon Dioxide (23-29) mEq/L BUN (8-23) mg/dL Creatinine (0.70-1.30) mg/dL Est GFR ( Amer) (> 60) Est GFR (Non-Af Amer) (> 60) BUN/Creatinine Ratio (6-26) Glucose (70-105) mg/dL Calculated Osmolality (280-300) Calcium (8.6-10.3) mg/dL Magnesium (1.6-2.6) mg/dL Total Bilirubin (0.3-1.0) mg/dL Direct Bilirubin (0.0-0.2) mg/dL Indirect Bilirubin (0.0-1.2) mg/dL AST (13-39) Units/L ALT (7-52) Units/L Alkaline Phosphatase (34-104) Units/L Ammonia (16-53) mcmol/L Creatine Kinase (30-223) Units/L Troponin I (< 0.04) ng/mL Serum Total Protein (6.4-8.9) g/dL Albumin (3.5-5.7) g/dL Globulin (2.4-3.5) g/dL Albumin/Globulin Ratio (1.1-2.2) Lipase (11-82) Units/L Urine Color Yellow (Yellow) Urine Clarity Clear (Clear) Urine pH 5.5 (5.0-8.0) pH Units Ur Specific [place] 1.024 (1.010-1.025) Urine Protein Trace (Neg-Trace) mg/dL Urine Glucose (UA) Normal (Normal) mg/dL Urine Ketones Negative (Negative) mg/dL Urine Blood Negative (Negative) Urine Nitrite Negative (Negative) Urine Bilirubin Small H (Negative) Urine Urobilinogen Normal (Normal) mg/dL Ur Leukocyte Esterase Moderate H (Negative) - Radiology Data Radiology results reviewed: Yes I reviewed the patient's radiology results. Chest X-Ray 04/09/19 16:06 IMPRESSION: No evidence of acute process. D/ / Oscar Osman / Oscar Osman Interpreting Provider: Oscar Osman - EKG Data EKG #1 EKG attestation: Yes I reviewed and interpreted this EKG. EKG results narrative: HR 61, rhythm sinus, axis normal. QRS 160 and prolonged, QTC 503 and prolonged, RI within normal limits. RBBB also noted on previous study dated 09/19/18. No clinically significant ST elevation.
[2019-04-09 16:57] LABS: Alanine Aminotransferase 9 Units/L (7-52); Albumin 4.2 g/dL (3.5-5.7); Albumin/Globulin Ratio 1.4 (1.1-2.2); Alkaline Phosphatase 131 Units/L (34-104); Aspartate Amino Transferase 14 Units/L (13-39); BUN/Creatinine Ratio 21 (6-26); Bilirubin,Direct 0.1 mg/dL (0.0-0.2); Bilirubin,Indirect 0.5 mg/dL (0.0-1.2); Bilirubin,Total 0.6 mg/dL (0.3-1.0); Blood Urea Nitrogen 32 mg/dL (8-23); Calcium 9.9 mg/dL (8.6-10.3); Carbon Dioxide 24 mEq/L (23-29); Chloride 106 mEq/L (98-107); Creatine Kinase 56 Units/L (30-223); Glucose 94 mg/dL (70-105); Lipase 19 Units/L (11-82); Magnesium 1.6 mg/dL (1.6-2.6); Osmolality,Calculated 291 (280-300); Potassium 4.4 mEq/L (3.5-5.1); Sodium 137 mEq/L (136-145); Total Protein 7.2 g/dL (6.4-8.9); Troponin I < 0.03 ng/mL (< 0.04); eGFR For African Americans 54 (> 60); eGFR For Non-African Americans 45 (> 60)
[2019-04-09 17:43] LABS: Bilirubin,Urine Small (Negative); Blood,Urine Negative (Negative); Clarity,Urine Clear (Clear); Color,Urine Yellow (Yellow); Glucose,Urine (UA) Normal (Normal); Ketones,Urine Negative (Negative); Leukocyte Esterase,Urine Moderate (Negative); Nitrite,Urine Negative (Negative); PH,Urine 5.5 pH Units (5.0-8.0); Protein,Urine Trace mg/dL (Neg-Trace); Specific Gravity,Urine 1.024 (1.010-1.025); Urobilinogen,Urine Normal (Normal)
[2019-04-09 17:52] LABS: Bacteria,Urine None Seen per hpf (None-Few); Hyaline Casts,Urine None Seen per lpf (None-Few); RBC,Urine 0-3 per hpf (0-3); Squamous Epithelial Cell,Urine Many per lpf (None-Few); WBC,Urine 30-50 per hpf (0-3)
--- NOTE | 2019-04-09 18:21 | Emergency Department Note ---
Disposition Clinical Impression: Failure to thrive Disposition: Admitted As Inpatient Condition: Fair Time of Disposition: 18:21 General Adult HPI - General Chief complaint: ED General Medical Stated complaint: weakness Time Seen by Provider: 04/09/19 16:07 Source: patient, EMS Limitations: no limitations Nursing Notes Reviewed: Yes Vital Signs Reviewed: Yes - History of Present Illness Pain Scale: 0 - Related Data Home Medications Medication Instructions Recorded Confirmed Citalopram [CeleXA] 40 mg PO DAILY 05/12/15 09/21/18 Nitroglycerin [Nitrostat] 0.4 mg SL Q5M PRN 05/12/15 09/21/18 Aspirin Enteric Coated [Aspirin EC] 81 mg PO DAILY 05/23/15 09/21/18 Metoprolol [Lopressor] 25 mg PO BID 12/17/15 09/21/18 Omeprazole [PriLOSEC] 20 mg PO DAILY 06/03/16 09/21/18 Nystatin Cream [Mycostatin Cream] 1 appl TP BID PRN 11/21/16 09/21/18 Oxycodone HCl 15 mg PO Q6H PRN 11/21/16 09/21/18 Pentoxifylline [TRENtal] 400 mg PO BID 11/21/16 09/21/18 Clopidogrel [Plavix] 75 mg PO DAILY 09/21/18 09/21/18 Docusate Sodium [Dok] 100 mg PO BID PRN 09/21/18 09/21/18 Lipase/Protease/Amylase [Rianna Szymanski 6,000 unit PO QAM 09/21/18 09/21/18 6,000 Units Capsule] Lipase/Protease/Amylase [Rianna Szymanski 12,000 unit PO QPM 09/21/18 09/21/18 6,000 Units Capsule] Oxybutynin Chloride [Ditropan Xl] 10 mg PO DAILY 09/21/18 09/21/18 Previous Rx's Medication Instructions Recorded ALPRAZolam [Xanax 1 MG Tablet] 1 mg PO TID PRN #30 tablet 08/22/15 Allergies Allergy/AdvReac Type Severity Reaction Status Date / Time hydromorphone [Hydromorphone] AdvReac Hallucinati Verified 09/19/18 21:02 ng rosuvastatin [From Crestor] AdvReac Muscle Pain Verified 09/19/18 21:02 [id number]-[id number] Reductase AdvReac Muscle Pain Verified 09/19/18 21:02 Inhibitor [Statins] Past Medical History - Past Medical History Medical history: Reports: COPD, hyperlipidemia, hypertension, myocardial infarction Surgical history: Reports: angioplasty/stent, coronary bypass (CABG), LE vascular intervention, vascular surgery, other Psychiatric history: Reports: anxiety, depression - Social History Smoking Status: Former smoker Smokeless Tobacco Status: No Alcohol use: Reports: none Drug use: Reports: none Physical Exam - General Limitations: no limitations General appearance: alert Course Vital Signs Temperature 98.6 F 04/09/19 16:12 Pulse Rate 61 04/09/19 16:12 Respiratory Rate 18 04/09/19 16:12 Blood Pressure 204/99 04/09/19 16:12 O2 Sat by Pulse Oximetry 98 04/09/19 16:12 Temperature 98.6 F 04/09/19 16:12 Pulse Rate 61 04/09/19 16:12 Respiratory Rate 18 04/09/19 16:12 Blood Pressure 204/99 04/09/19 16:12 O2 Sat by Pulse Oximetry 98 04/09/19 16:12 Oxygen Delivery Oxygen Delivery Room Air Medical Decision Making - Lab Data Result diagrams: 04/09/19 16:17 04/09/19 16:17 Lab Results 04/09/19 04/09/19 04/09/19 Range/Units 16:17 16:17 16:17 WBC 6.8 (4.3-11.1) K/mcL RBC 4.45 (4.19-5.50) M/mcL Hgb 13.8 (12.9-16.9) g/dL Hct 42.0 (37.5-50.1) % MCV 94.4 (83.0-100.0) fL MCH 31.0 (28.0-33.3) pg MCHC 32.9 (31.6-35.5) g/dL RDW 13.2 (11.5-14.5) % Plt Count 145 (140-400) K/mcL MPV 11.5 (9.4-12.4) fL Immature Gran % 0.3 (0-4) % Seg Neutrophils % 72.3 % Lymphocytes % 17.3 % Monocytes % 6.6 % Eosinophils % 3.1 % Basophils % 0.4 % Neutrophils # 4.9 (1.6-8.9) K/mcL Lymphocytes # 1.2 (0.6-4.6) K/mcL Monocytes # 0.5 (0.0-1.3) K/mcL Eosinophils # 0.2 (0.0-0.6) K/mcL Basophils # 0.0 (0.0-0.2) K/mcL Sodium 137 (136-145) mEq/L Potassium 4.4 (3.5-5.1) mEq/L Chloride 106 (98-107) mEq/L Carbon Dioxide 24 (23-29) mEq/L BUN 32 H (8-23) mg/dL Creatinine 1.52 H (0.70-1.30) mg/dL Est GFR ( Amer) 54 L (> 60) Est GFR (Non-Af Amer) 45 L (> 60) BUN/Creatinine Ratio 21 (6-26) Glucose 94 (70-105) mg/dL Calculated Osmolality 291 (280-300) Calcium 9.9 (8.6-10.3) mg/dL Magnesium 1.6 (1.6-2.6) mg/dL Total Bilirubin 0.6 (0.3-1.0) mg/dL Direct Bilirubin 0.1 (0.0-0.2) mg/dL Indirect Bilirubin 0.5 (0.0-1.2) mg/dL AST 14 (13-39) Units/L ALT 9 (7-52) Units/L Alkaline Phosphatase 131 H (34-104) Units/L Ammonia 34 (16-53) mcmol/L Creatine Kinase 56 (30-223) Units/L Troponin I < 0.03 (< 0.04) ng/mL Serum Total Protein 7.2 (6.4-8.9) g/dL Albumin 4.2 (3.5-5.7) g/dL Globulin 3.0 (2.4-3.5) g/dL Albumin/Globulin Ratio 1.4 (1.1-2.2) Lipase 19 (11-82) Units/L Urine Color (Yellow) Urine Clarity (Clear) Urine pH (5.0-8.0) pH Units Ur Specific [place] (1.010-1.025) Urine Protein (Neg-Trace) mg/dL Urine Glucose (UA) (Normal) mg/dL Urine Ketones (Negative) mg/dL Urine Blood (Negative) Urine Nitrite (Negative) Urine Bilirubin (Negative) Urine Urobilinogen (Normal) mg/dL Ur Leukocyte Esterase (Negative) 04/09/19 Range/Units 17:15 WBC (4.3-11.1) K/mcL RBC (4.19-5.50) M/mcL Hgb (12.9-16.9) g/dL Hct (37.5-50.1) % MCV (83.0-100.0) fL MCH (28.0-33.3) pg MCHC (31.6-35.5) g/dL RDW (11.5-14.5) % Plt Count (140-400) K/mcL MPV (9.4-12.4) fL Immature Gran % (0-4) % Seg Neutrophils % % Lymphocytes % % Monocytes % % Eosinophils % % Basophils % % Neutrophils # (1.6-8.9) K/mcL Lymphocytes # (0.6-4.6) K/mcL Monocytes # (0.0-1.3) K/mcL Eosinophils # (0.0-0.6) K/mcL Basophils # (0.0-0.2) K/mcL Sodium (136-145) mEq/L Potassium (3.5-5.1) mEq/L Chloride (98-107) mEq/L Carbon Dioxide (23-29) mEq/L BUN (8-23) mg/dL Creatinine (0.70-1.30) mg/dL Est GFR ( Amer) (> 60) Est GFR (Non-Af Amer) (> 60) BUN/Creatinine Ratio (6-26) Glucose (70-105) mg/dL Calculated Osmolality (280-300) Calcium (8.6-10.3) mg/dL Magnesium (1.6-2.6) mg/dL Total Bilirubin (0.3-1.0) mg/dL Direct Bilirubin (0.0-0.2) mg/dL Indirect Bilirubin (0.0-1.2) mg/dL AST (13-39) Units/L ALT (7-52) Units/L Alkaline Phosphatase (34-104) Units/L Ammonia (16-53) mcmol/L Creatine Kinase (30-223) Units/L Troponin I (< 0.04) ng/mL Serum Total Protein (6.4-8.9) g/dL Albumin (3.5-5.7) g/dL Globulin (2.4-3.5) g/dL Albumin/Globulin Ratio (1.1-2.2) Lipase (11-82) Units/L Urine Color Yellow (Yellow) Urine Clarity Clear (Clear) Urine pH 5.5 (5.0-8.0) pH Units Ur Specific [place] 1.024 (1.010-1.025) Urine Protein Trace (Neg-Trace) mg/dL Urine Glucose (UA) Normal (Normal) mg/dL Urine Ketones Negative (Negative) mg/dL Urine Blood Negative (Negative) Urine Nitrite Negative (Negative) Urine Bilirubin Small H (Negative) Urine Urobilinogen Normal (Normal) mg/dL Ur Leukocyte Esterase Moderate H (Negative) Attestation Statement - Attestation Attestation: I have seen this patient with the resident physician, I have personally evaluated this patient. I had reviewed the chart and document dictation by the resident physician and aM in agreement with the information documented by the resident physician. Please see documentation by the resident physician for complete chart including past medical history, family medical history, review of systems, current history and physical and laboratory and imaging studies. I was present for all procedures, provided direct supervision for all procedures, was present for the entirety of all procedures and provided direct guidance during the procedures. Please see documentation by the resident physician for any procedures performed. I have reviewed all interpretations of EKGs, and reviewed all EKGs performed on patient's as well. I have also reviewed reports of imaging as provided by radiology. Patient was sent from his primary care physician for concerns that he cannot take care of himself. He has apparently not left his house in 6 months, and he is not able to make food appropriately and his primary care did not feel that he was safe for living by himself so he sent him to the ER. The daughter is a nurse in the primary care physician's office, and does arrive and state that he has been having increased problems taking care of himself he is not eating or drinking very much and is not taking his medications appropriately she does not feel that he can take care of himself and that he does need extended care facility basement as well. Vital signs within acceptable and laboratory studies all within acceptable limits patient without acute concerns currently with no current symptoms. Patient will be admitted, for fdc placement, per social work, daughter and primary care physician's request.
[2019-04-09 19:07] LABS: Yeast,Urine Few per hpf (None Seen)
[2019-04-09] MEDS ORDERED: Ondansetron 4 MG/2 ML VIAL IVP PRN (21:47)
[2019-04-09] MEDS ORDERED: Naloxone 0.4 MG/ML INJ IVP PRN (21:47)
[2019-04-09] MEDS ORDERED: Acetaminophen 325 MG TABLET PO PRN (21:47)
--- NOTE | 2019-04-09 21:58 | Internal Med History&Physical ---
Date of Encounter: 04/09/19 Time of Encounter: 21:46 Internal Medicine - H&P: HPI Chief complaint: failure to thrive History of present illness: Mr. Ham is a 79 year old male with past medical history significant of hypertension, COPD, hyperlipidemia, myocardial infarction who was sent by his primary further questions can physician for failure to thrive and generalized weakness. The patient 11 he is on and his primary care physician is recommended placement. The patient will be admitted for further evaluation by physical therapy and nutritional therapy as well as social psychologist for possible placement. On admission it was noted that patient's blood pressure is high however his compliance with his medication cannot be verified. Past Med Surg Social Fam HX - Past Medical History Medical history: COPD, hyperlipidemia, hypertension, myocardial infarction Additional medical history: prostate ca Psychiatric history: anxiety, depression - Past Surgical History Surgical History: angioplasty/stent, coronary bypass (CABG), LE vascular intervention, vascular surgery, other Additional surgical history: Right groin surgery, Blood clot removal from leg, 2 carpal tunnel surgeries bilateral, 10-12 cardiac stents, Artery removal from left arm - Social History Smoking Status: Former smoker Smokeless Tobacco Status: No Alcohol use: none Drug use: none - Family History Mother Adopted: No Family Member Ethnicity: Non- Living Status: Hx Family Cardiac Disorders: No Hx Family Respiratory Disorders: No Hx Family Cancer: No Hx Family GI Disorders: No Hx Family Endocrine Disorder: No Hx Family Neuromuscular Disorders: No Hx Family Neurologic Disorders: No Hx Family HEENT Disorders: No Hx Family Autoimmune Disorders: No Internal Medicine - H&P: Meds Citalopram [CeleXA] 40 mg PO DAILY 05/12/15 [History] Nitroglycerin [Nitrostat] 0.4 mg SL Q5M PRN 05/12/15 [History] Aspirin Enteric Coated [Aspirin EC] 81 mg PO DAILY 05/23/15 [History] Metoprolol [Lopressor] 25 mg PO BID 12/17/15 [History] Omeprazole [PriLOSEC] 20 mg PO DAILY 06/03/16 [History] Nystatin Cream [Mycostatin Cream] 1 appl TP BID PRN 11/21/16 [History] Pentoxifylline [TRENtal] 400 mg PO BID 11/21/16 [History] Clopidogrel [Plavix] 75 mg PO DAILY 09/21/18 [History] Docusate Sodium [Dok] 100 mg PO BID 09/21/18 [History] Lipase/Protease/Amylase [Rianna Szymanski 6,000 Units Capsule] 6,000 unit PO TIDWM 09/21/18 [History] Oxybutynin Chloride [Ditropan XL] 10 mg PO HS 09/21/18 [History] ALPRAZolam [Xanax 1 MG Tablet] 1 mg PO HS 04/10/19 [History] Lipase/Protease/Amylase [Rianna Szymanski 6,000 Units Capsule] 1 each PO QAM capsule. 04/13/19 [Rx] amLODIPine [Norvasc] 10 mg PO DAILY tablet 04/13/19 [Rx] ALPRAZolam [Xanax 1 MG Tablet] 1 mg PO TID PRN 1 Days #3 tablet 04/14/19 [Rx] Cefdinir [Omnicef] 300 mg PO BID 7 Days #14 capsule 04/14/19 [Rx] Oxycodone HCl 15 mg PO Q12H PRN 1 Days #2 tablet 04/14/19 [Rx] Allergy/AdvReac Type Severity Reaction Status Date / Time hydromorphone [Hydromorphone] AdvReac Hallucinati Verified 09/19/18 21:02 ng rosuvastatin [From Crestor] AdvReac Muscle Pain Verified 09/19/18 21:02 Yzrjxkm-Vqy-Zsq Reductase AdvReac Muscle Pain Verified 09/19/18 21:02 Inhibitor [Statins] All Systems PM: A 10-system review of systems was performed and is negative for pertinent findings except as documented above in the HPI. - Constitutional Vitals: Temp Pulse Resp BP Pulse Ox 98.1 F 43 16 170/91 99 04/09/19 20:37 04/09/19 20:37 04/09/19 20:37 04/09/19 20:37 04/09/19 20:37 Exam: ` - Head Head exam: Present: atraumatic, normocephalic - Neck Neck exam general surgery: Present: supple, trachea midline. Absent: lymphadenopathy - Respiratory Respiratory exam: Present: CTAB. Absent: accessory muscle use, rales, rhonchi, wheezes - Cardiovascular Cardiovascular exam: Present: RRR, +S1, +S2. Absent: diastolic murmur, gallop, rubs, systolic murmur - GI/Abdominal GI/Abdominal exam: Present: normal bowel sounds, soft, no peritoneal signs. Absent: distended, tenderness - Extremities Exam Extremities exam: Present: warm, radial pulses palpable and symmetrical. Absent: calf tenderness, cyanotic, pedal edema Internal Med - H&P Results - Labs CBC & Chem 7: 04/14/19 03:51 04/14/19 07:08 Labs: Short CBC 04/09/19 Range/Units 16:17 WBC 6.8 (4.3-11.1) K/mcL Hgb 13.8 (12.9-16.9) g/dL Hct 42.0 (37.5-50.1) % Plt Count 145 (140-400) K/mcL Neutrophils # 4.9 (1.6-8.9) K/mcL BMP 04/09/19 16:17 Sodium 137 Potassium 4.4 Chloride 106 Carbon Dioxide 24 BUN 32 H Creatinine 1.52 H Glucose 94 Calcium 9.9 Cardiac Enzymes 04/09/19 Range/Units 16:17 Troponin I < 0.03 (< 0.04) ng/mL Liver Function 04/09/19 Range/Units 16:17 Total Bilirubin 0.6 (0.3-1.0) mg/dL Direct Bilirubin 0.1 (0.0-0.2) mg/dL AST 14 (13-39) Units/L ALT 9 (7-52) Units/L Alkaline Phosphatase 131 H (34-104) Units/L Albumin 4.2 (3.5-5.7) g/dL Urine 04/09/19 Range/Units 17:15 Urine Color Yellow (Yellow) Urine Clarity Clear (Clear) Urine pH 5.5 (5.0-8.0) pH Units Ur Specific [place] 1.024 (1.010-1.025) Urine Protein Trace (Neg-Trace) mg/dL Urine Glucose (UA) Normal (Normal) mg/dL - Impressions ITS Impressions Chest X-Ray 04/09/19 16:06 IMPRESSION: No evidence of acute process. D/ / Oscar Osman / Oscar Osman Interpreting Provider: Oscar Osman - Assessment and Plan (1) Failure to thrive Status: Acute Assessment and plan: Post primary care physician and family is expressing concern about the patient ability to live independently, social work was consulted for placement also BT consult and OT consult was placed Qualifiers: Failure to thrive age range: in adult Qualified Code(s): R62.7 - Adult failure to thrive (2) Generalized weakness Status: Acute Assessment and plan: see # 1 (3) CAD (coronary artery disease) Status: Chronic Assessment and plan: We will continue home medication Qualifiers: Coronary Disease-Associated Artery/Lesion type: [place] artery [place] vs. transplanted heart: [place] heart Associated angina: without angina Qualified Code(s): I25.10 - Atherosclerotic heart disease of [place] coronary artery without angina pectoris (4) CKD (chronic kidney disease), stage III Status: Acute Assessment and plan: Creatinine at baseline, will continue to monitor renal function, renal disease dosing of medication as better current EGFR and avoid nephrotoxic meds (5) COPD (chronic obstructive pulmonary disease) Status: Chronic Assessment and plan: We will continue home inhalers Qualifiers: COPD type: unspecified COPD Qualified Code(s): J44.9 - Chronic obstructive pulmonary disease, unspecified (6) Anemia of chronic disease Status: Chronic Assessment and plan: We will cont to monitor H& H , transfuse for hgb less than 7 (7) PAD (peripheral artery disease) Status: Chronic (8) Hypotension Status: Acute Assessment and plan: Blood pressure is uncontrolled, associated with hydralazine as well as physical Rocher was no significant movement, responded well to calcium channel jamshid. We will continue to monitor blood pressure and adjust regimen accordingly. Qualifiers: Qualified Code(s): I95.9 - Hypotension, unspecified (9) Prostate cancer Status: Chronic - Time Spent With Patient Total time spent is greater than 50% in coordination of care (as documented) at patient's floor/unit and/or counseling patient:
[2019-04-10] MEDS ORDERED: *HR* Metoprolol 5 MG/5 ML VIAL IVP ONE (00:29)
[2019-04-10] MEDS ORDERED: Nitroglycerin 0.4 MG TAB.SUBL SL PRN (01:50)
[2019-04-10] MEDS ORDERED: Nystatin Cream 15 GM TUBE TP PRN (01:50)
[2019-04-10] MEDS ORDERED: NIFEdipine 10 MG CAPSULE PO ONE (03:41)
[2019-04-10] MEDS: *HR* OxyCODONE Immed Rel 15 MG TABLET PO PRN ×2 (03:44→18:49)
[2019-04-10 04:48] LABS: Hematocrit 41.5 % (37.5-50.1); Hemoglobin 13.8 g/dL (12.9-16.9); Mean Corpuscular HGB Conc 33.3 g/dL (31.6-35.5); Mean Corpuscular Hemoglobin 31.8 pg (28.0-33.3); Mean Corpuscular Volume 95.6 fL (83.0-100.0); Mean Platelet Volume 11.7 fL (9.4-12.4); Platelet Count 138 K/mcL (140-400); Red Blood Count 4.34 M/mcL (4.19-5.50); White Blood Count 6.3 K/mcL (4.3-11.1)
[2019-04-10 04:55] LABS: INR 1.1; Prothrombin Time 12.2 Seconds (9.4-12.1)
[2019-04-10 05:13] LABS: Albumin 4.1 g/dL (3.5-5.7); Albumin/Globulin Ratio 1.4 (1.1-2.2); Bilirubin,Total 0.6 mg/dL (0.3-1.0); Calcium 10.1 mg/dL (8.6-10.3); Chol/HDL Ratio 7.5 (0-4.9); Globulin 2.9 g/dL (2.4-3.5); Magnesium 1.7 mg/dL (1.6-2.6); Phosphorous 2.3 mg/dL (2.7-4.5); Potassium 4.2 mEq/L (3.5-5.1)
--- NOTE | 2019-04-10 09:24 | Internal Med Progress Note ---
Hospitalist Progress Note - Encounter Date of Encounter: 04/10/19 Time of Encounter: 09:24 - Subjective Interval History: Patient was seen and examined at bedside . Currently he is alert and oriented to name and place following simple commands. He does admit to experiencing multiple falls at home but is currently residing with his daughter. He also a dmits that he is not capable of caring for himself and his daughter helps him with his ADLs. Awaiting evaluation and recommendations by PT and OT - Exam Vitals: Temp Pulse Resp BP Pulse Ox 97.8 F 59 18 160/77 95 04/10/19 07:01 04/10/19 07:01 04/10/19 07:01 04/10/19 07:01 04/10/19 07:01 Exam: Skin: Free of rash and discoloration. Eyes: Sclera is white. There is no discharge from eyes. ENMT: Oral/pharyngeal mucosa is normal in appearance. There is no discharge from nose or ears. Respiratory: Normal breath sounds with no crackles and wheezes bilaterally. CV: Heart is regular with no gallop or murmur. GI: Abdomen is flat and soft with no palpable mass or visceromegaly. : There is no tenderness in patient's flanks bilaterally. Neuro exam: He has good strength in upper and lower extremities. He has normal eye movements. Psychiatric: He has normal affect. His thought process is appropriate to the situation. - Assessment and Plan (1) Failure to thrive Current Visit: Yes Status: Acute Assessment and Plan: Post primary care physician and family is expressing concern about the patient ability to live independently, social work was consulted for placement also BT consult and OT consult was placed 04/10 Patient expresses that he is unable to live independently-states that he has had multiple falls when living alone- currently lives with his daughter at she [facility] all his ADLs he states he has not had a fall since living with her PT and OT has been consulted and appreciate recommendations guest services manager has been consulted Nutritional services consulted for dietary supplements We will check pre-albumin (2) CKD (chronic kidney disease), stage III Current Visit: No Status: Acute Assessment and Plan: Creatinine at baseline, will continue to monitor renal function, renal disease dosing of medication as better current EGFR and avoid nephrotoxic meds 04/10 Creatinine is at baseline we will continue to monitor Avoid nephrotoxins (3) CAD (coronary artery disease) Current Visit: No Status: Acute Assessment and Plan: We will continue home medication 04/10 Continue with aspirin and Plavix beta jamshid and triglyceride as needed for chest pain-no chest pain voiced at this time. (4) COPD (chronic obstructive pulmonary disease) Current Visit: No Status: Chronic Assessment and Plan: We will continue home inhalers 04/10 Does not appear to be in exacerbation at this time continue with bronchodilators (5) Anemia of chronic disease Current Visit: No Status: Chronic Assessment and Plan: Hemoglobin appears stable continue to monitor (6) Generalized weakness Current Visit: No Status: Acute Assessment and Plan: see # 1 (7) Prostate cancer Current Visit: No Status: Chronic (8) PAD (peripheral artery disease) Current Visit: No Status: Chronic Assessment and Plan: Continue with [place] (9) Hypertension Current Visit: No Status: Acute Assessment and Plan: Continue with home medications - Time Spent with Patient Total time spent is greater than 50% in coordination of care (as documented) at patient's floor/unit and/or counseling patient: Internal Medicine: Result - Labs CBC & Chem 7: 04/10/19 04:03 04/10/19 04:03 Labs: Short CBC 04/09/19 04/10/19 Range/Units 16:17 04:03 WBC 6.8 6.3 (4.3-11.1) K/mcL Hgb 13.8 13.8 (12.9-16.9) g/dL Hct 42.0 41.5 (37.5-50.1) % Plt Count 145 138 L (140-400) K/mcL Neutrophils # 4.9 (1.6-8.9) K/mcL BMP 04/09/19 04/10/19 16:17 04:03 Sodium 137 138 Potassium 4.4 4.2 Chloride 106 108 H Carbon Dioxide 24 22 L BUN 32 H 29 H Creatinine 1.52 H 1.41 H Glucose 94 83 Calcium 9.9 10.1 Cardiac Enzymes 04/09/19 Range/Units 16:17 Troponin I < 0.03 (< 0.04) ng/mL Liver Function 04/09/19 04/10/19 Range/Units 16:17 04:03 Total Bilirubin 0.6 0.6 (0.3-1.0) mg/dL Direct Bilirubin 0.1 (0.0-0.2) mg/dL AST 14 14 (13-39) Units/L ALT 9 10 (7-52) Units/L Alkaline Phosphatase 131 H 128 H (34-104) Units/L Albumin 4.2 4.1 (3.5-5.7) g/dL Urine 04/09/19 Range/Units 17:15 Urine Color Yellow (Yellow) Urine Clarity Clear (Clear) Urine pH 5.5 (5.0-8.0) pH Units Ur Specific [place] 1.024 (1.010-1.025) Urine Protein Trace (Neg-Trace) mg/dL Urine Glucose (UA) Normal (Normal) mg/dL - ABG Interpretation ABG results: PT/INR, D-dimer PT 12.2 Seconds (9.4-12.1) H 04/10/19 04:03 - Impressions Impressions Chest X-Ray 04/09/19 16:06 IMPRESSION: No evidence of acute process. D/ / Oscar Osman / Oscar Osman Interpreting Provider: Oscar Osman Ankle X-Ray 04/10/19 01:14 IMPRESSION: Chronic appearing findings as detailed above. D/ / Shailesh Ireland MD / Shailesh Ireland MD Interpreting Provider: Shailesh Ireland MD Wrist X-Ray 04/10/19 01:14 IMPRESSION: Chronic appearing findings as detailed above. D/ / Shailesh Ireland MD / Shailesh Ireland MD Interpreting Provider: Shailesh Ireland MD Consult Discharge Plan - Plan Referrals: Nickolas Roca DO [Primary Care Provider] - (Appointment has been requested.) (1) Failure to thrive Qualifiers: Failure to thrive age range: in adult Qualified Code(s): R62.7 - Adult failure to thrive (3) CAD (coronary artery disease) Qualifiers: Coronary Disease-Associated Artery/Lesion type: [place] artery [place] vs. [place] heart: [place] heart Associated angina: without angina Qualified Code(s): I25.10 - Atherosclerotic heart disease of [place] coronary artery without angina pectoris (4) COPD (chronic obstructive pulmonary disease) Qualifiers: COPD type: unspecified COPD Qualified Code(s): J44.9 - Chronic obstructive pulmonary disease, unspecified (9) Hypertension Qualifiers: Hypertension type: essential hypertension Qualified Code(s): I10 - Essential (primary) hypertension
[2019-04-10] MEDS: Aspirin Enteric Coated 81 MG Tablet PO SCH (09:38)
[2019-04-10] MEDS: ALPRAZolam 1 MG TABLET PO PRN (20:18)
[2019-04-11 02:47] LABS: Calcium 9.7 mg/dL (8.6-10.3); Potassium 4.1 mEq/L (3.5-5.1)
[2019-04-11] MEDS: Aspirin Enteric Coated 81 MG Tablet PO SCH (08:46)
[2019-04-11] MEDS: *HR* OxyCODONE Immed Rel 15 MG TABLET PO PRN (08:46)
[2019-04-11] MEDS: amLODIPine 5 MG TABLET PO SCH (08:46)
--- NOTE | 2019-04-11 10:52 | Internal Med Progress Note ---
Hospitalist Progress Note - Encounter Date of Encounter: 04/11/19 Time of Encounter: 10:51 - Subjective Interval History: Patient was seen and examined at bedside he is participating with physical therapy. Denies any pain or discomfort at this time awaiting ECF placement - Exam Vitals: Temp Pulse Resp BP Pulse Ox 98.1 F 67 16 190/80 96 04/11/19 07:04 04/11/19 07:04 04/11/19 07:04 04/11/19 07:04 04/11/19 07:04 Exam: Skin: Free of rash and discoloration. Eyes: Sclera is white. There is no discharge from eyes. ENMT: Oral/pharyngeal mucosa is normal in appearance. There is no discharge from nose or ears. Respiratory: Normal breath sounds with no crackles and wheezes bilaterally. CV: Heart is regular with no gallop or murmur. GI: Abdomen is flat and soft with no palpable mass or visceromegaly. : There is no tenderness in patient's flanks bilaterally. Neuro exam: He has good strength in upper and lower extremities. He has normal eye movements. Psychiatric: He has normal affect. His thought process is appropriate to the situation. - Assessment and Plan (1) Failure to thrive Current Visit: Yes Status: Acute Assessment and Plan: Post primary care physician and family is expressing concern about the patient ability to live independently, social work was consulted for placement also BT consult and OT consult was placed 04/10 Patient expresses that he is unable to live independently-states that he has had multiple falls when living alone- currently lives with his daughter at she provides all his ADLs he states he has not had a fall since living with her PT and OT has been consulted and appreciate recommendations career services assistant has been consulted Nutritional services consulted for dietary supplements We will check pre-albumin 04/11 Continue with fall precautions PT/OT recommending ECF placement social insurance administrator has been consulted awaiting acceptance at [facility] Pre-albumin 24.7 (2) CKD (chronic kidney disease), stage III Current Visit: No Status: Acute Assessment and Plan: Creatinine at baseline, will continue to monitor renal function, renal disease dosing of medication as better current EGFR and avoid nephrotoxic meds 04/10 Creatinine is at baseline we will continue to monitor Avoid nephrotoxins 04/11 We will continue to monitor avoid nephrotoxins (3) CAD (coronary artery disease) Current Visit: No Status: Acute Assessment and Plan: We will continue home medication 04/10 Continue with aspirin and Plavix beta jamshid and triglyceride as needed for chest pain-no chest pain voiced at this time. 04/11 Continue with aspirin and Plavix beta jamshid patient is unable to take statins (4) COPD (chronic obstructive pulmonary disease) Current Visit: No Status: Chronic Assessment and Plan: We will continue home inhalers 04/10 Does not appear to be in exacerbation at this time continue with bronchodilators 04/11 Patient does not appear to be exacerbations we will continue with home bronchodilators (5) Anemia of chronic disease Current Visit: No Status: Chronic Assessment and Plan: Hemoglobin appears stable continue to monitor (6) Generalized weakness Current Visit: No Status: Acute Assessment and Plan: see # 1 (7) Prostate cancer Current Visit: No Status: Chronic (8) PAD (peripheral artery disease) Current Visit: No Status: Chronic Assessment and Plan: Continue with Trental (9) Hypertension Current Visit: No Status: Acute Assessment and Plan: Continue with home medications-patient did have some elevated blood pressures added Norvasc we will continue to monitor-hydralazine as needed for systolic greater than 180 - Time Spent with Patient Total time spent is greater than 50% in coordination of care (as documented) at patient's floor/unit and/or counseling patient: Internal Medicine: Result - Labs CBC & Chem 7: 04/10/19 04:03 04/11/19 02:16 Labs: BMP 04/11/19 02:16 Sodium 140 Potassium 4.1 Chloride 106 Carbon Dioxide 22 L BUN 32 H Creatinine 1.60 H Glucose 98 Calcium 9.7 - ABG Interpretation ABG results: PT/INR, D-dimer PT 12.2 Seconds (9.4-12.1) H 04/10/19 04:03 Consult Discharge Plan - Plan Referrals: Nickolas Roca DO [Primary Care Provider] - (Appointment has been requested.) (1) Failure to thrive Qualifiers: Failure to thrive age range: in adult Qualified Code(s): R62.7 - Adult failure to thrive (3) CAD (coronary artery disease) Qualifiers: Coronary Disease-Associated Artery/Lesion type: [place] artery [place] vs. transplanted heart: [place] heart Associated angina: without angina Qualified Code(s): I25.10 - Atherosclerotic heart disease of [place] coronary artery without angina pectoris (4) COPD (chronic obstructive pulmonary disease) Qualifiers: COPD type: unspecified COPD Qualified Code(s): J44.9 - Chronic obstructive pulmonary disease, unspecified (9) Hypertension Qualifiers: Hypertension type: essential hypertension Qualified Code(s): I10 - Essential (primary) hypertension
--- NOTE | 2019-04-11 15:14 | Electrocardiograph Report ---
[facility] Test Date: 2019-04-09 Pat Name: Francisco Ham Department: EXAM11 Room: 3B35 Gender: M Mohel: : 1940 Requested By: Tan Eduardo Order Number: [id number] Reading MD: Josué Jaimes Measurements Intervals [place] Rate: 61 P: 46 CT: 172 QRS: 62 QRSD: 160 T: 18 QT: 499 QTc: 503 Interpretive Statements Sinus rhythm Atrial premature complex Right bundle branch block Electronically Signed On 04-11-2019 15:12:18 EDT by Josué Jaimes
[2019-04-11] MEDS: ALPRAZolam 1 MG TABLET PO PRN (20:11)
[2019-04-12 05:15] LABS: Basophils % 0.6 %; Eosinophils # 0.3 K/mcL (0.0-0.6); Eosinophils % 3.6 %; Hematocrit 42.3 % (37.5-50.1); Immature Granulocytes % 0.4 % (0-4); Lymphocytes # 1.7 K/mcL (0.6-4.6); Lymphocytes % 22.8 %; Mean Corpuscular HGB Conc 33.1 g/dL (31.6-35.5); Mean Corpuscular Hemoglobin 31.4 pg (28.0-33.3); Mean Corpuscular Volume 94.8 fL (83.0-100.0); Monocytes # 0.7 K/mcL (0.0-1.3); Monocytes % 9.1 %; Neutrophils # 4.6 K/mcL (1.6-8.9); Platelet Count 145 K/mcL (140-400); Red Blood Count 4.46 M/mcL (4.19-5.50); Red Cell Distribution Width 13.4 % (11.5-14.5); Segmented Neutrophils % 63.5 %; White Blood Count 7.3 K/mcL (4.3-11.1)
[2019-04-12 05:33] LABS: Potassium 4.1 mEq/L (3.5-5.1)
[2019-04-12] MEDS: Aspirin Enteric Coated 81 MG Tablet PO SCH (07:35)
[2019-04-12] MEDS: amLODIPine 5 MG TABLET PO SCH ×2 (07:36→11:49)
[2019-04-12] MEDS: *HR* OxyCODONE Immed Rel 15 MG TABLET PO PRN (13:43)
--- NOTE | 2019-04-12 15:52 | Internal Med Progress Note ---
Hospitalist Progress Note - Encounter Date of Encounter: 04/12/19 Time of Encounter: 16:05 - Subjective Interval History: Patient was seen and examined at bedside he is single bedside with nursing staff performing ADLs without any difficulty is oriented to name and he will be discharged to [facility] in the a.m. - Exam Vitals: Temp Pulse Resp BP Pulse Ox 97.8 F 99 16 155/61 98 04/12/19 11:03 04/12/19 11:03 04/12/19 11:03 04/12/19 11:03 04/12/19 11:03 Exam: Skin: Free of rash and discoloration. Eyes: Sclera is white. There is no discharge from eyes. ENMT: Oral/pharyngeal mucosa is normal in appearance. There is no discharge from nose or ears. Respiratory: Normal breath sounds with no crackles and wheezes bilaterally. CV: Heart is regular with no gallop or murmur. GI: Abdomen is flat and soft with no palpable mass or visceromegaly. : There is no tenderness in patient's flanks bilaterally. Neuro exam: He has good strength in upper and lower extremities. He has normal eye movements. Psychiatric: He has normal affect. His thought process is appropriate to the situation. - Assessment and Plan (1) Failure to thrive Current Visit: Yes Status: Acute Assessment and Plan: Post primary care physician and family is expressing concern about the patient ability to live independently, social work was consulted for placement also BT consult and OT consult was placed 04/10 Patient expresses that he is unable to live independently-states that he has had multiple falls when living alone- currently lives with his daughter at she provides all his ADLs he states he has not had a fall since living with her PT and OT has been consulted and appreciate recommendations client services assistant has been consulted Nutritional services consulted for dietary supplements We will check pre-albumin 04/11 Continue with fall precautions PT/OT recommending ECF placement social worker masters has been consulted awaiting acceptance at [facility] Pre-albumin 24.7 04/12 Continue with fall precautions Will be discharged to [facility] in the a.m. for further therapy (2) CKD (chronic kidney disease), stage III Current Visit: No Status: Acute Assessment and Plan: Creatinine at baseline, will continue to monitor renal function, renal disease dosing of medication as better current EGFR and avoid nephrotoxic meds 04/10 Creatinine is at baseline we will continue to monitor Avoid nephrotoxins 04/11 We will continue to monitor avoid nephrotoxins 04/12 Continue to monitor avoid nephrotoxins (3) CAD (coronary artery disease) Current Visit: No Status: Acute Assessment and Plan: We will continue home medication 04/10 Continue with aspirin and Plavix beta jamshid and triglyceride as needed for chest pain-no chest pain voiced at this time. 04/11 Continue with aspirin and Plavix beta jamshid patient is unable to take statins 04/12 No chest pain voiced continue aspirin Plavix beta blockers (4) COPD (chronic obstructive pulmonary disease) Current Visit: No Status: Chronic Assessment and Plan: We will continue home inhalers 04/10 Does not appear to be in exacerbation at this time continue with bronchodilators 04/11 Patient does not appear to be exacerbations we will continue with home bronchodilators 04/12 Patient does not appear to be exacerbations we will continue with home bronchodilators (5) Anemia of chronic disease Current Visit: No Status: Chronic Assessment and Plan: Hemoglobin appears stable continue to monitor (6) Generalized weakness Current Visit: No Status: Acute Assessment and Plan: see # 1 (7) Prostate cancer Current Visit: No Status: Chronic (8) PAD (peripheral artery disease) Current Visit: No Status: Chronic Assessment and Plan: Continue with Trental (9) Hypertension Current Visit: No Status: Acute Assessment and Plan: Continue with home medications-patient did have some elevated blood pressures added Norvasc we will continue to monitor-hydralazine as needed for systolic greater than 180 - Time Spent with Patient Total time spent is greater than 50% in coordination of care (as documented) at patient's floor/unit and/or counseling patient: Internal Medicine: Result - Labs CBC & Chem 7: 04/12/19 05:03 04/12/19 05:03 Labs: Short CBC 04/12/19 Range/Units 05:03 WBC 7.3 (4.3-11.1) K/mcL Hgb 14.0 (12.9-16.9) g/dL Hct 42.3 (37.5-50.1) % Plt Count 145 (140-400) K/mcL Neutrophils # 4.6 (1.6-8.9) K/mcL BMP 04/12/19 05:03 Sodium 138 Potassium 4.1 Chloride 106 Carbon Dioxide 24 BUN 38 H Creatinine 1.60 H Glucose 96 Calcium 10.0 - ABG Interpretation ABG results: PT/INR, D-dimer PT 12.2 Seconds (9.4-12.1) H 04/10/19 04:03 Consult Discharge Plan - Plan Referrals: Nickolas Roca DO [Primary Care Provider] - (Appointment has been requested.) (1) Failure to thrive Qualifiers: Failure to thrive age range: in adult Qualified Code(s): R62.7 - Adult failure to thrive (3) CAD (coronary artery disease) Qualifiers: Coronary Disease-Associated Artery/Lesion type: [place] artery [place] vs. transplanted heart: [place] heart Associated angina: without angina Qualified Code(s): I25.10 - Atherosclerotic heart disease of [place] coronary artery without angina pectoris (4) COPD (chronic obstructive pulmonary disease) Qualifiers: COPD type: unspecified COPD Qualified Code(s): J44.9 - Chronic obstructive pulmonary disease, unspecified (9) Hypertension Qualifiers: Hypertension type: essential hypertension Qualified Code(s): I10 - Essential (primary) hypertension
[2019-04-13] MEDS: amLODIPine 5 MG TABLET PO SCH (08:36)
[2019-04-13] MEDS: Aspirin Enteric Coated 81 MG Tablet PO SCH (08:36)
[2019-04-13 09:19] LABS: Basophils % 0.4 %; Eosinophils # 0.3 K/mcL (0.0-0.6); Eosinophils % 4.5 %; Hematocrit 44.4 % (37.5-50.1); Hemoglobin 14.5 g/dL (12.9-16.9); Immature Granulocytes % 0.1 % (0-4); Lymphocytes # 1.3 K/mcL (0.6-4.6); Lymphocytes % 19.1 %; Mean Corpuscular HGB Conc 32.7 g/dL (31.6-35.5); Mean Corpuscular Hemoglobin 31.3 pg (28.0-33.3); Mean Corpuscular Volume 95.9 fL (83.0-100.0); Mean Platelet Volume 11.4 fL (9.4-12.4); Monocytes # 0.5 K/mcL (0.0-1.3); Monocytes % 6.7 %; Neutrophils # 4.6 K/mcL (1.6-8.9); Platelet Count 148 K/mcL (140-400); Red Blood Count 4.63 M/mcL (4.19-5.50); Red Cell Distribution Width 13.2 % (11.5-14.5); Segmented Neutrophils % 69.2 %; White Blood Count 6.7 K/mcL (4.3-11.1)
[2019-04-13 09:35] LABS: BUN/Creatinine Ratio 26 (6-26); Blood Urea Nitrogen 35 mg/dL (8-23); Carbon Dioxide 23 mEq/L (23-29); Chloride 105 mEq/L (98-107); Glucose 117 mg/dL (70-105); Osmolality,Calculated 293 (280-300); Potassium 4.3 mEq/L (3.5-5.1); Sodium 137 mEq/L (136-145); eGFR For African Americans > 60 (> 60); eGFR For Non-African Americans 51 (> 60)
--- NOTE | 2019-04-13 09:45 | Discharge Summary ---
- NOTES TO OUTPATIENT PROVIDER Notes to Outpatient Provider: Failure to thrive frequent falls evaluated by PT OT recommending inpatient rehabilitation. He did have an elevated blood pressure increase Norvasc monitor as outpatient Date of Encounter: 04/13/19 Time of Encounter: 09:39 - Discharge Diagnosis (1) Failure to thrive Priority: Primary Status: Acute Qualifiers: Failure to thrive age range: in adult Qualified Code(s): R62.7 - Adult failure to thrive (2) CKD (chronic kidney disease), stage III Priority: Secondary Status: Acute (3) CAD (coronary artery disease) Priority: Secondary Status: Acute Qualifiers: Coronary Disease-Associated Artery/Lesion type: [place] artery [place] vs. transplanted heart: [place] heart Associated angina: without angina Qualified Code(s): I25.10 - Atherosclerotic heart disease of [place] coronary artery without angina pectoris (4) COPD (chronic obstructive pulmonary disease) Priority: Secondary Status: Chronic Qualifiers: COPD type: unspecified COPD Qualified Code(s): J44.9 - Chronic obstructive pulmonary disease, unspecified (5) Anemia of chronic disease Priority: Secondary Status: Chronic (6) Generalized weakness Priority: Primary Status: Acute (7) Prostate cancer Priority: Secondary Status: Chronic (8) PAD (peripheral artery disease) Priority: Secondary Status: Chronic (9) Hypertension Priority: Secondary Status: Acute Qualifiers: Hypertension type: essential hypertension Qualified Code(s): I10 - Essential (primary) hypertension Hospital course: Mr. Ham is a 79 year old male with history of hypertension COPD CKG stage III hyperlipidemia myocardia infarction he was seen by his primary care provider for failure to thrive and generalized weak as. He has had frequent falls at home and is living with his daughter at this time. Lab work was unremarkable chest x-ray with no acute process he was evaluated by PT and OT recommending inpatient rehabilitation. During stay patient did have elevated blood pressure and Norvasc was increased which improved. He was accepted at [facility] currently hemodynamically stable ready for discharge. - Time Spent with Patient Total time spent providing and/or coordinating discharge services: - Discharge Medications Prescriptions: New amLODIPine [Norvasc] 10 mg PO DAILY tablet Lipase/Protease/Amylase [Rianna Szymanski 6,000 Units Capsule] 1 each PO QAM capsule. Continued Citalopram [CeleXA] 40 mg PO DAILY Nitroglycerin [Nitrostat] 0.4 mg SL Q5M PRN PRN Reason: Chest Pain Aspirin Enteric Coated [Aspirin EC] 81 mg PO DAILY Metoprolol [Lopressor] 25 mg PO BID Omeprazole [PriLOSEC] 20 mg PO DAILY Pentoxifylline [TRENtal] 400 mg PO BID Oxycodone HCl 15 mg PO Q12H PRN PRN Reason: Pain Nystatin Cream [Mycostatin Cream] 1 appl TP BID PRN PRN Reason: Rash Lipase/Protease/Amylase [Rianna Szymanski 6,000 Units Capsule] 6,000 unit PO TIDWM Oxybutynin Chloride [Ditropan XL] 10 mg PO HS Docusate Sodium [Dok] 100 mg PO BID Clopidogrel [Plavix] 75 mg PO DAILY ALPRAZolam [Xanax 1 MG Tablet] 1 mg PO HS Home Medications: Citalopram [CeleXA] 40 mg PO DAILY 05/12/15 [History] Nitroglycerin [Nitrostat] 0.4 mg SL Q5M PRN 05/12/15 [History] Aspirin Enteric Coated [Aspirin EC] 81 mg PO DAILY 05/23/15 [History] Metoprolol [Lopressor] 25 mg PO BID 12/17/15 [History] Omeprazole [PriLOSEC] 20 mg PO DAILY 06/03/16 [History] Nystatin Cream [Mycostatin Cream] 1 appl TP BID PRN 11/21/16 [History] Oxycodone HCl 15 mg PO Q12H PRN 11/21/16 [History] Pentoxifylline [TRENtal] 400 mg PO BID 11/21/16 [History] Clopidogrel [Plavix] 75 mg PO DAILY 09/21/18 [History] Docusate Sodium [Dok] 100 mg PO BID 09/21/18 [History] Lipase/Protease/Amylase [Rianna Szymanski 6,000 Units Capsule] 6,000 unit PO TIDWM 09/21/18 [History] Oxybutynin Chloride [Ditropan XL] 10 mg PO HS 09/21/18 [History] ALPRAZolam [Xanax 1 MG Tablet] 1 mg PO HS 04/10/19 [History] Lipase/Protease/Amylase [Rianna Szymanski 6,000 Units Capsule] 1 each PO QAM capsule. 04/13/19 [Rx] amLODIPine [Norvasc] 10 mg PO DAILY tablet 04/13/19 [Rx] Allergies/Adverse Reactions: Allergy/AdvReac Type Severity Reaction Status Date / Time hydromorphone [Hydromorphone] AdvReac Hallucinati Verified 09/19/18 21:02 ng rosuvastatin [From Crestor] AdvReac Muscle Pain Verified 09/19/18 21:02 [id number]-[id number]-Rge Reductase AdvReac Muscle Pain Verified 09/19/18 21:02 Inhibitor [Statins] Date of admission: 04/10/19 16:10 Primary care physician: Osbaldo Roca DO Consults: 04/09/19 21:56 Consult to Physical Therapy [CONS] Routine Comment: Evaluate, develop and implement POC Reason for Consult: WEEKNESS Does patient have active BEDREST order?: No Is patient medically & hemodynamically stable?: Yes Patient assessed for mobility or mobilized this visit?: No 04/09/19 21:57 Consult to Occupational Therapy [CONS] Routine Comment: Evaluate, develop and implement POC Reason for Consult: WEEKNESS Does patient have active BEDREST order?: No Is patient medically & hemodynamically stable?: Yes Patient assessed for mobility or mobilized this visit?: No Consult to Brake Repair Mechanic [CONS] Routine Reason for SW Consult: PLACEMENT 04/10/19 10:16 consult to biomass boiler operator [Consult to Nutrition] [CONS] Routine Comment: Consulting Provider: NUTRITION Reason for Dietary Consult: PO Supplementation Discharging clinician: Meredith Anthony Anticipated date of discharge: 04/13/19 - Constitutional Vitals: Temp Pulse Resp BP Pulse Ox 97.8 F 70 16 171/81 97 04/13/19 06:43 04/13/19 06:43 04/13/19 06:43 04/13/19 06:43 04/13/19 06:43 Exam: Skin: Free of rash and discoloration. Eyes: Sclera is white. There is no discharge from eyes. ENMT: Oral/pharyngeal mucosa is normal in appearance. There is no discharge from nose or ears. Respiratory: Normal breath sounds with no crackles and wheezes bilaterally. CV: Heart is regular with no gallop or murmur. GI: Abdomen is flat and soft with no palpable mass or visceromegaly. : There is no tenderness in patient's flanks bilaterally. Neuro exam: He has good strength in upper and lower extremities. He has normal eye movements. Psychiatric: He has normal affect. His thought process is appropriate to the situation. - Patient Status Disposition: Transfer SNF Condition: Fair Functional capacity at discharge: independent ambulation Overall status at discharge: patient is back to baseline - Discharge Instructions Follow Up With: Nickolas Roca DO [Primary Care Provider] - (Appointment has been requested.) Forms: ED Satisfaction Letter, Work/School Release - Diet and Activity Activity: as per physical therapy Diet: advance to your usual diet
--- NOTE | 2019-04-13 10:13 | Physician Discharge Referral ---
ExtendedCare Referral Info Transfer To: [facility] Provider in Charge: Meredith Anthony Provider in Charge after Transfer: PCP Institutional Level of Care: Skilled - Diagnosis (1) Failure to thrive Priority: Primary Status: Acute (2) CKD (chronic kidney disease), stage III Priority: Secondary Status: Acute (3) CAD (coronary artery disease) Priority: Secondary Status: Chronic (4) COPD (chronic obstructive pulmonary disease) Priority: Secondary Status: Chronic (5) Anemia of chronic disease Priority: Secondary Status: Chronic (6) Generalized weakness Priority: Primary Status: Acute (7) Prostate cancer Priority: Secondary Status: Chronic (8) PAD (peripheral artery disease) Priority: Secondary Status: Chronic (9) Hypertension Priority: Secondary Status: Acute - Transfer Medications Home Medications: Citalopram [CeleXA] 40 mg PO DAILY 05/12/15 [History] Nitroglycerin [Nitrostat] 0.4 mg SL Q5M PRN 05/12/15 [History] Aspirin Enteric Coated [Aspirin EC] 81 mg PO DAILY 05/23/15 [History] Metoprolol [Lopressor] 25 mg PO BID 12/17/15 [History] Omeprazole [PriLOSEC] 20 mg PO DAILY 06/03/16 [History] Nystatin Cream [Mycostatin Cream] 1 appl TP BID PRN 11/21/16 [History] Oxycodone HCl 15 mg PO Q12H PRN 11/21/16 [History] Pentoxifylline [TRENtal] 400 mg PO BID 11/21/16 [History] Clopidogrel [Plavix] 75 mg PO DAILY 09/21/18 [History] Docusate Sodium [Dok] 100 mg PO BID 09/21/18 [History] Lipase/Protease/Amylase [Rianna Szymanski 6,000 Units Capsule] 6,000 unit PO TIDWM 09/21/18 [History] Oxybutynin Chloride [Ditropan XL] 10 mg PO HS 09/21/18 [History] ALPRAZolam [Xanax 1 MG Tablet] 1 mg PO HS 04/10/19 [History] Lipase/Protease/Amylase [Rianna Szymanski 6,000 Units Capsule] 1 each PO QAM capsule. 04/13/19 [Rx] amLODIPine [Norvasc] 10 mg PO DAILY tablet 04/13/19 [Rx] Allergies/Adverse Reactions: Allergy/AdvReac Type Severity Reaction Status Date / Time hydromorphone [Hydromorphone] AdvReac Hallucinati Verified 09/19/18 21:02 ng rosuvastatin [From Crestor] AdvReac Muscle Pain Verified 09/19/18 21:02 Lkxtpcy-Vly-Pqe Reductase AdvReac Muscle Pain Verified 09/19/18 21:02 Inhibitor [Statins] - Respiratory Orders Smoking Cessation: Smoking cessation has been advised. For more information, call the [place] Tobacco Quit Line at 1-307-QNIP-NOW. - Advance Directives Living Will: No Code Status: Full Code - Rehabiliation Orders Rehab Orders: Evaluation for Physical Therapy - Treatments Skin tear care topically daily PRN per policy - Diet Orders Cardiac CERTIFICATION: I certify that the transfer of the above named patient to an Extended Care Facility is necessary for the continuing treatment of the diagnosis listed. The above information is true and accurate reflection of patient's current condition. Confidential - Redisclosure prohibited without a patient's written consent.
--- NOTE | 2019-04-13 15:20 | Internal Med Progress Note ---
Hospitalist Progress Note - Encounter Date of Encounter: 04/13/19 Time of Encounter: 15:18 - Subjective Interval History: Anticipated to discharge patient today however prior to discharge patient did have episode of danny hematuria-denied any pain or discomfort or analysis has been obtained and urology has been consulted. Updated patient's daughter on tremaine tse discharge will be placed on hold he will be kept overnight in order to be evaluated by urology in the a.m. - Exam Vitals: Temp Pulse Resp BP Pulse Ox 98.0 F 60 16 127/75 96 04/13/19 10:45 04/13/19 10:45 04/13/19 10:45 04/13/19 10:45 04/13/19 10:45 Exam: Skin: Free of rash and discoloration. Eyes: Sclera is white. There is no discharge from eyes. ENMT: Oral/pharyngeal mucosa is normal in appearance. There is no discharge from nose or ears. Respiratory: Normal breath sounds with no crackles and wheezes bilaterally. CV: Heart is regular with no gallop or murmur. GI: Abdomen is flat and soft with no palpable mass or visceromegaly. : There is no tenderness in patient's flanks bilaterally. Neuro exam: He has good strength in upper and lower extremities. He has normal eye movements. Psychiatric: He has normal affect. His thought process is appropriate to the situation. - Assessment and Plan (1) Failure to thrive Current Visit: Yes Status: Acute Assessment and Plan: Post primary care physician and family is expressing concern about the patient ability to live independently, social work was consulted for placement also BT consult and OT consult was placed 04/10 Patient expresses that he is unable to live independently-states that he has had multiple falls when living alone- currently lives with his daughter at she provides all his ADLs he states he has not had a fall since living with her PT and OT has been consulted and appreciate recommendations maintenance services dispatcher has been consulted Nutritional services consulted for dietary supplements We will check pre-albumin 04/11 Continue with fall precautions PT/OT recommending ECF placement director of social services has been consulted awaiting acceptance at [facility] Pre-albumin 24.7 04/12 Continue with fall precautions Will be discharged to [facility] in the a.m. for further therapy 04/13 Continue with fall precautions Will be discharged to [facility] in the a.m. for further therapy (2) CKD (chronic kidney disease), stage III Current Visit: No Status: Acute Assessment and Plan: Creatinine at baseline, will continue to monitor renal function, renal disease dosing of medication as better current EGFR and avoid nephrotoxic meds 04/10 Creatinine is at baseline we will continue to monitor Avoid nephrotoxins 04/11 We will continue to monitor avoid nephrotoxins 04/12 Continue to monitor avoid nephrotoxins 04/13 Stable at this time (3) CAD (coronary artery disease) Current Visit: No Status: Chronic Assessment and Plan: We will continue home medication 04/10 Continue with aspirin and Plavix beta ajmshid and triglyceride as needed for chest pain-no chest pain voiced at this time. 04/11 Continue with aspirin and Plavix beta jamshid patient is unable to take statins 04/12 No chest pain voiced continue aspirin Plavix beta blockers 04/13 No chest pain voiced continue aspirin Plavix beta blockers (4) COPD (chronic obstructive pulmonary disease) Current Visit: No Status: Chronic Assessment and Plan: We will continue home inhalers 04/10 Does not appear to be in exacerbation at this time continue with bronchodilators 04/11 Patient does not appear to be exacerbations we will continue with home bronchodilators 04/12 Patient does not appear to be exacerbations we will continue with home bronchodilators 04/13 Patient does not appear to be exacerbations we will continue with home bronchodilators (5) Anemia of chronic disease Current Visit: No Status: Chronic Assessment and Plan: Hemoglobin appears stable continue to monitor He did have some danny hematuria today we will monitor closely (6) Generalized weakness Current Visit: No Status: Acute Assessment and Plan: see # 1 (7) Prostate cancer Current Visit: No Status: Chronic Assessment and Plan: History of prostate cancer we will consult urology patient's experiencing danny hematuria no difficulty in urination (8) PAD (peripheral artery disease) Current Visit: No Status: Chronic Assessment and Plan: Continue with [place] (9) Hypertension Current Visit: No Status: Acute Assessment and Plan: Continue with home medications-patient did have some elevated blood pressures added Norvasc we will continue to monitor-hydralazine as needed for systolic greater than 180 Blood pressure improved today (10) Hematuria Current Visit: Yes Status: Acute Assessment and Plan: Patient had episode of danny hematuria has a history of prostate cancer we will obtain urinalysis we did consult urology We will monitor closely H&H - Time Spent with Patient Total time spent is greater than 50% in coordination of care (as documented) at patient's floor/unit and/or counseling patient: Internal Medicine: Result - Labs CBC & Chem 7: 04/13/19 08:56 04/13/19 08:56 Labs: Short CBC 04/13/19 Range/Units 08:56 WBC 6.7 (4.3-11.1) K/mcL Hgb 14.5 (12.9-16.9) g/dL Hct 44.4 (37.5-50.1) % Plt Count 148 (140-400) K/mcL Neutrophils # 4.6 (1.6-8.9) K/mcL BMP 04/13/19 08:56 Sodium 137 Potassium 4.3 Chloride 105 Carbon Dioxide 23 BUN 35 H Creatinine 1.36 H Glucose 117 H Calcium 10.0 - ABG Interpretation ABG results: PT/INR, D-dimer PT 12.2 Seconds (9.4-12.1) H 04/10/19 04:03 Consult Discharge Plan - Plan Referrals: Nickolas Roca DO [Primary Care Provider] - (Appointment has been requested.) __ (1) Failure to thrive Qualifiers: Failure to thrive age range: in adult Qualified Code(s): R62.7 - Adult failure to thrive (3) CAD (coronary artery disease) Qualifiers: Coronary Disease-Associated Artery/Lesion type: [place] artery [place] vs. transplanted heart: [place] heart Associated angina: without angina Qualified Code(s): I25.10 - Atherosclerotic heart disease of [place] coronary artery without angina pectoris (4) COPD (chronic obstructive pulmonary disease) Qualifiers: COPD type: unspecified COPD Qualified Code(s): J44.9 - Chronic obstructive pulmonary disease, unspecified (9) Hypertension Qualifiers: Hypertension type: essential hypertension Qualified Code(s): I10 - Essential (primary) hypertension
[2019-04-13 16:00] LABS: Bilirubin,Urine Small (Negative); Blood,Urine Large (Negative); Clarity,Urine Cloudy (Clear); Glucose,Urine (UA) Normal (Normal); Ketones,Urine Negative (Negative); Leukocyte Esterase,Urine Large (Negative); Nitrite,Urine Positive (Negative); Protein,Urine Trace mg/dL (Neg-Trace); Urobilinogen,Urine Normal (Normal)
[2019-04-13 16:01] LABS: Color,Urine Red (Yellow)
[2019-04-13 16:02] LABS: Bacteria,Urine Few per hpf (None-Few); Hyaline Casts,Urine None Seen per lpf (None-Few); RBC,Urine TNTC per hpf (0-3); Squamous Epithelial Cell,Urine Moderate per lpf (None-Few); WBC,Urine TNTC per hpf (0-3)
[2019-04-14] MEDS: *HR* OxyCODONE Immed Rel 15 MG TABLET PO PRN (02:09)
[2019-04-14 05:04] LABS: Basophils % 0.5 %; Eosinophils # 0.2 K/mcL (0.0-0.6); Eosinophils % 2.3 %; Hematocrit 41.1 % (37.5-50.1); Hemoglobin 13.3 g/dL (12.9-16.9); Immature Granulocytes % 0.3 % (0-4); Lymphocytes # 0.8 K/mcL (0.6-4.6); Lymphocytes % 13.1 %; Mean Corpuscular HGB Conc 32.4 g/dL (31.6-35.5); Mean Corpuscular Hemoglobin 31.6 pg (28.0-33.3); Mean Corpuscular Volume 97.6 fL (83.0-100.0); Monocytes # 0.4 K/mcL (0.0-1.3); Monocytes % 6.9 %; Neutrophils # 4.9 K/mcL (1.6-8.9); Platelet Count 147 K/mcL (140-400); Red Blood Count 4.21 M/mcL (4.19-5.50); Red Cell Distribution Width 13.1 % (11.5-14.5); Segmented Neutrophils % 76.9 %; White Blood Count 6.4 K/mcL (4.3-11.1)
[2019-04-14 07:52] LABS: Calcium 9.7 mg/dL (8.6-10.3); Potassium 4.3 mEq/L (3.5-5.1)
[2019-04-14] MEDS: amLODIPine 5 MG TABLET PO SCH (08:19)
[2019-04-14] MEDS: Aspirin Enteric Coated 81 MG Tablet PO SCH (08:19)
--- NOTE | 2019-04-14 10:34 | Urology Progress Note ---
Date of Encounter: 04/14/19 Time of Encounter: 10:32 - Assessment and Plan (1) Hematuria Current Visit: Yes Status: Acute Assessment and plan: New-onset gross hematuria yesterday. Urine clear in urine this morning. Discussed potential etiologies evaluation. 4 mm nonobstructing stone seen on CT from August of this year. Plan: My office will arrange for outpatient follow- up including upper tract imaging and cystoscopy. Qualifiers: Hematuria type: gross Qualified Code(s): R31.0 - Gross hematuria (2) Prostate cancer Current Visit: No Status: Chronic Assessment and plan: Management with observation through my partner Dr. Curry. Plan: Continue follow-up as scheduled to [address] Curry. No indications for surgical intervention at this time. Progress Note Subjective: hematuria Objective Initial Vital Signs Temp Pulse Resp BP Pulse Ox 98.6 F 61 18 204/99 98 04/09/19 16:12 04/09/19 16:12 04/09/19 16:12 04/09/19 16:12 04/09/19 16:12 - General physical appearance Present: well nourished, no distress - Respiratory Present: normal respiratory effort - Abdomen Present: soft, non tender - Integumentary Present: no rash - Musculoskeletal Present: normal posture - Psychiatric Present: oriented to time, oriented to person, oriented to place - Labs 04/14/19 03:51 04/14/19 07:08 Diabetes panel 04/14/19 Range/Units 07:08 Sodium 138 (136-145) mEq/L Potassium 4.3 (3.5-5.1) mEq/L Chloride 104 (98-107) mEq/L Carbon Dioxide 25 (23-29) mEq/L BUN 42 H (8-23) mg/dL Creatinine 1.68 H (0.70-1.30) mg/dL Glucose 99 (70-105) mg/dL Calcium 9.7 (8.6-10.3) mg/dL Calcium panel 04/14/19 Range/Units 07:08 Calcium 9.7 (8.6-10.3) mg/dL Pituitary panel 04/14/19 Range/Units 07:08 Sodium 138 (136-145) mEq/L Potassium 4.3 (3.5-5.1) mEq/L Chloride 104 (98-107) mEq/L Carbon Dioxide 25 (23-29) mEq/L BUN 42 H (8-23) mg/dL Creatinine 1.68 H (0.70-1.30) mg/dL Glucose 99 (70-105) mg/dL Calcium 9.7 (8.6-10.3) mg/dL Adrenal panel 04/14/19 Range/Units 07:08 Sodium 138 (136-145) mEq/L Potassium 4.3 (3.5-5.1) mEq/L Chloride 104 (98-107) mEq/L Carbon Dioxide 25 (23-29) mEq/L BUN 42 H (8-23) mg/dL Creatinine 1.68 H (0.70-1.30) mg/dL Glucose 99 (70-105) mg/dL Calcium 9.7 (8.6-10.3) mg/dL Consult Discharge Plan - Plan Referrals: Nickolas Roca DO [Primary Care Provider] - (Appointment has been requested.)
[2019-04-14 11:25] VITALS: BP 149/80
[2019-04-14] MEDS ORDERED: Cefdinir 300 MG CAPSULE PO SCH (21:00)
== END 2019-04-14 13:04 | DRG 641 ==
LOC: EMEROOARM 16:04 → 3BNU 16:04
PROVIDERS: ADMIT Internal Medicine; ATTEND Internal Medicine

== ENCOUNTER 2019-05-27 11:51 | Inpatient (IN) ==
[2019-05-27] MEDS ORDERED: Acetaminophen 325 MG TABLET PO PRN (15:03)
[2019-05-27] MEDS ORDERED: Ondansetron 4 MG/2 ML VIAL IVP PRN (15:03)
[2019-05-27] MEDS ORDERED: Naloxone 0.4 MG/ML INJ IVP PRN (15:03)
[2019-05-27] MEDS ORDERED: *HR* Heparin 5,000 UNIT/ML VIAL SQ SCH (16:00)
[2019-05-27 16:09] LABS: Basophils % 0.3 %; Eosinophils # 0.3 K/mcL (0.0-0.6); Hematocrit 36.3 % (37.5-50.1); Hemoglobin 11.6 g/dL (12.9-16.9); Immature Granulocytes % 0.4 % (0-4); Lymphocytes # 1.6 K/mcL (0.6-4.6); Lymphocytes % 22.5 %; Mean Corpuscular Hemoglobin 30.9 pg (28.0-33.3); Mean Corpuscular Volume 96.8 fL (83.0-100.0); Mean Platelet Volume 10.8 fL (9.4-12.4); Monocytes # 0.7 K/mcL (0.0-1.3); Neutrophils # 4.4 K/mcL (1.6-8.9); Platelet Count 171 K/mcL (140-400); Red Blood Count 3.75 M/mcL (4.19-5.50); Red Cell Distribution Width 14.1 % (11.5-14.5); Segmented Neutrophils % 62.8 %
[2019-05-27 16:18] LABS: INR 1.1; Prothrombin Time 12.2 Seconds (9.4-12.1)
[2019-05-27 16:21] LABS: Activated Partial Thrombo Time 32.8 Seconds (26.0-36.0)
[2019-05-27 16:34] LABS: Albumin 3.6 g/dL (3.5-5.7); Albumin/Globulin Ratio 1.2 (1.1-2.2); Bilirubin,Total 0.5 mg/dL (0.3-1.0); Calcium 9.1 mg/dL (8.6-10.3); Globulin 2.9 g/dL (2.4-3.5); Magnesium 1.8 mg/dL (1.6-2.6); Potassium 4.7 mEq/L (3.5-5.1); Total Protein 6.5 g/dL (6.4-8.9)
[2019-05-27] MEDS: ALPRAZolam 1 MG TABLET PO PRN (17:13)
[2019-05-27] MEDS: Morphine Sulfate 2 MG/ML SYRINGE IVP PRN ×2 (17:14→19:12)
[2019-05-27] MEDS ORDERED: *HR* Heparin 5,000 UNIT/ML VIAL IVP ONE (19:08)
[2019-05-27] MEDS ORDERED: *HR* Heparin 5,000 UNIT/ML VIAL IVP PRN ×2 (19:08)
[2019-05-27 19:53] LABS: Hematocrit 34.2 % (37.5-50.1); Hemoglobin 10.9 g/dL (12.9-16.9); Mean Corpuscular HGB Conc 31.9 g/dL (31.6-35.5); Mean Corpuscular Hemoglobin 30.8 pg (28.0-33.3); Mean Corpuscular Volume 96.6 fL (83.0-100.0); Mean Platelet Volume 10.6 fL (9.4-12.4); Platelet Count 165 K/mcL (140-400); Red Blood Count 3.54 M/mcL (4.19-5.50); Red Cell Distribution Width 13.9 % (11.5-14.5); White Blood Count 6.6 K/mcL (4.3-11.1)
[2019-05-27 20:00] LABS: Heparin anti-factor XA UFH 0.01 IU/mL (0.30-0.70)
[2019-05-27 20:01] LABS: Prothrombin Time 11.8 Seconds (9.4-12.1)
[2019-05-27] MEDS: Heparin 25,000 UNIT/250 ML D5W 25,000 UNIT/250 ML IV.SOLN IVC SCH (20:38)
[2019-05-27] MEDS ORDERED: *HR* HYDROcodone/Acet 5/325 mg TABLET PO ONE (22:41)
[2019-05-28] MEDS: Morphine Sulfate 2 MG/ML SYRINGE IVP PRN ×2 (01:59→06:12)
[2019-05-28] MEDS ORDERED: *HR* HYDROcodone/Acet 5/325 mg TABLET PO ONE (04:10)
[2019-05-28 04:14] LABS: Basophils % 0.5 %; Eosinophils # 0.2 K/mcL (0.0-0.6); Eosinophils % 2.4 %; Hematocrit 36.8 % (37.5-50.1); Hemoglobin 11.6 g/dL (12.9-16.9); Immature Granulocytes % 0.2 % (0-4); Lymphocytes # 1.3 K/mcL (0.6-4.6); Lymphocytes % 15.4 %; Mean Corpuscular HGB Conc 31.5 g/dL (31.6-35.5); Mean Corpuscular Hemoglobin 31.3 pg (28.0-33.3); Mean Corpuscular Volume 99.2 fL (83.0-100.0); Mean Platelet Volume 10.7 fL (9.4-12.4); Monocytes # 0.8 K/mcL (0.0-1.3); Monocytes % 9.4 %; Neutrophils # 6.1 K/mcL (1.6-8.9); Nucleated Red Blood Cells 0.2 /100 WBC (0); Platelet Count 172 K/mcL (140-400); Red Blood Count 3.71 M/mcL (4.19-5.50); Red Cell Distribution Width 13.9 % (11.5-14.5); Segmented Neutrophils % 72.1 %; White Blood Count 8.5 K/mcL (4.3-11.1)
[2019-05-28] MEDS: ALPRAZolam 1 MG TABLET PO PRN ×2 (04:16→08:16)
[2019-05-28 04:35] LABS: Calcium 9.6 mg/dL (8.6-10.3); Magnesium 1.8 mg/dL (1.6-2.6); Potassium 4.5 mEq/L (3.5-5.1)
[2019-05-28 07:29] LABS: Estimated Average Glucose 117 mg/dl
[2019-05-28] MEDS ORDERED: *HR* Dextrose 50 % in Water (Syg) 50 ML SYRINGE IVP PRN (07:29)
[2019-05-28] MEDS ORDERED: Dextrose Gel 15 GM/37.5 ML TUBE PO PRN ×2 (07:29)
[2019-05-28] MEDS ORDERED: D5% in Water 1,000 ML IVC PRN (07:29)
[2019-05-28] MEDS: amLODIPine 5 MG TABLET PO SCH (08:16)
[2019-05-28] MEDS: Aspirin Enteric Coated 81 MG Tablet PO SCH (08:16)
[2019-05-28] MEDS ORDERED: *HR* Acetylcysteine 20% 600 MG/3 ML ORAL SYRINGE PO SCH ×2 (09:00→21:13)
[2019-05-28] MEDS: 0.9 % Sodium Chloride 1,000 ML IVC SCH ×2 (09:48→23:08)
[2019-05-28] MEDS ORDERED: Insulin LISPRO 300 UNITS/3 ML VIAL SQ SCH (12:00)
[2019-05-28 14:55] LABS: ABG Base Excess -1 mEq/L (-2 to 3); ABG HCO3 24 mEq/L (21-27); ABG Oxygen Saturation 83 % (95-98); ABG PCO2 41 mmHg (35-45); ABG PH 7.38 pH Units (7.32-7.45); ABG PO2 48 mmHg (85-104); ABG TCO2 25 mEq/L (20-26)
[2019-05-28] MEDS ORDERED: Isovue-370 500 ML BOTTLE IVP ONE (16:58)
[2019-05-28] MEDS ORDERED: Haloperidol Lactate 5 MG/ML VIAL IVP PRN (17:17)
[2019-05-28] MEDS ORDERED: *HR* Metoprolol 5 MG/5 ML VIAL IVP ONE ×3 (17:51→21:08)
[2019-05-28] MEDS ORDERED: Ipratropium/Albuterol Neb 3 ML ONE (18:27)
[2019-05-28] MEDS ORDERED: *HR* Labetalol 20 MG/4 ML SYRINGE IVP PRN (18:33)
[2019-05-28 18:44] LABS: ABG Base Excess -2 mEq/L (-2 to 3); ABG HCO3 23 mEq/L (21-27); ABG Oxygen Saturation 95 % (95-98); ABG PCO2 41 mmHg (35-45); ABG PH 7.36 pH Units (7.32-7.45); ABG PO2 80 mmHg (85-104); ABG TCO2 24 mEq/L (20-26)
[2019-05-28] MEDS: Heparin 25,000 UNIT/250 ML D5W 25,000 UNIT/250 ML IV.SOLN IVC SCH (18:48)
[2019-05-28] MEDS ORDERED: Ipratropium/Albuterol Neb 3 ML IH ONE (19:03)
[2019-05-28 19:07] LABS: Basophils % 0.2 %; Immature Granulocytes % 0.3 % (0-4); Lymphocytes # 0.6 K/mcL (0.6-4.6); Lymphocytes % 4.4 %; Mean Corpuscular HGB Conc 32.8 g/dL (31.6-35.5); Mean Corpuscular Hemoglobin 31.3 pg (28.0-33.3); Mean Corpuscular Volume 95.6 fL (83.0-100.0); Mean Platelet Volume 10.5 fL (9.4-12.4); Monocytes % 3.8 %; Platelet Count 200 K/mcL (140-400); Segmented Neutrophils % 91.3 %
[2019-05-28 19:08] LABS: Hemoglobin 14.1 g/dL (12.9-16.9); Monocytes # 0.6 K/mcL (0.0-1.3); Neutrophils # 13.2 K/mcL (1.6-8.9); White Blood Count 14.4 K/mcL (4.3-11.1)
[2019-05-28 19:23] LABS: Alanine Aminotransferase 15 Units/L (7-52); Albumin 4.1 g/dL (3.5-5.7); Albumin/Globulin Ratio 1.1 (1.1-2.2); Alkaline Phosphatase 212 Units/L (34-104); Aspartate Amino Transferase 21 Units/L (13-39); BUN/Creatinine Ratio 18 (6-26); Blood Urea Nitrogen 24 mg/dL (8-23); Carbon Dioxide 21 mEq/L (23-29); Chloride 107 mEq/L (98-107); Globulin 3.6 g/dL (2.4-3.5); Glucose 146 mg/dL (70-105); Osmolality,Calculated 287 (280-300); Potassium 4.4 mEq/L (3.5-5.1); Sodium 135 mEq/L (136-145); Total Protein 7.7 g/dL (6.4-8.9); eGFR For African Americans > 60 (> 60); eGFR For Non-African Americans 53 (> 60)
[2019-05-28] MEDS: Piperacillin/Tazobactam 3.375 GM in 0.9 % Sodium Chloride Mini Bag 100 ML IVPB SCH (20:25)
[2019-05-28] MEDS ORDERED: Acetaminophen 650 MG RECTAL SUPP RC PRN (22:39)
[2019-05-29] MEDS: Piperacillin/Tazobactam 3.375 GM in 0.9 % Sodium Chloride Mini Bag 100 ML IVPB SCH ×3 (01:15→15:16)
[2019-05-29 04:26] LABS: Basophils % 0.1 %; Hematocrit 35.5 % (37.5-50.1); Immature Granulocytes % 0.8 % (0-4); Lymphocytes % 5.5 %; Mean Corpuscular HGB Conc 31.3 g/dL (31.6-35.5); Mean Corpuscular Hemoglobin 30.8 pg (28.0-33.3); Mean Corpuscular Volume 98.6 fL (83.0-100.0); Mean Platelet Volume 11.1 fL (9.4-12.4); Monocytes # 1.1 K/mcL (0.0-1.3); Neutrophils # 16.5 K/mcL (1.6-8.9); Platelet Count 174 K/mcL (140-400); Red Cell Distribution Width 13.9 % (11.5-14.5); Segmented Neutrophils % 87.6 %; White Blood Count 18.8 K/mcL (4.3-11.1)
[2019-05-29 04:34] LABS: Calcium 9.2 mg/dL (8.6-10.3); Magnesium 1.6 mg/dL (1.6-2.6); Potassium 4.4 mEq/L (3.5-5.1)
[2019-05-29 04:42] LABS: Hemoglobin 11.1 g/dL (12.9-16.9)
[2019-05-29] MEDS: Aspirin Enteric Coated 81 MG Tablet PO SCH (09:21)
[2019-05-29] MEDS: amLODIPine 5 MG TABLET PO SCH (09:23)
[2019-05-29] MEDS ORDERED: Ipratropium/Albuterol Neb 3 ML IH PRN (15:01)
[2019-05-29] MEDS: 0.9 % Sodium Chloride 1,000 ML IVC SCH (15:13)
[2019-05-29] MEDS: Heparin 25,000 UNIT/250 ML D5W 25,000 UNIT/250 ML IV.SOLN IVC SCH (21:15)
[2019-05-30] MEDS: 0.9 % Sodium Chloride 1,000 ML IVC SCH ×2 (01:17→14:49)
[2019-05-30] MEDS: Piperacillin/Tazobactam 3.375 GM in 0.9 % Sodium Chloride Mini Bag 100 ML IVPB SCH ×4 (01:18→23:34)
[2019-05-30 01:21] LABS: Basophils % 0.1 %; Eosinophils # 0.1 K/mcL (0.0-0.6); Eosinophils % 0.5 %; Hemoglobin 10.9 g/dL (12.9-16.9); Immature Granulocytes % 0.8 % (0-4); Lymphocytes # 1.4 K/mcL (0.6-4.6); Lymphocytes % 10.8 %; Mean Corpuscular HGB Conc 32.1 g/dL (31.6-35.5); Mean Corpuscular Hemoglobin 31.1 pg (28.0-33.3); Mean Corpuscular Volume 97.1 fL (83.0-100.0); Mean Platelet Volume 10.8 fL (9.4-12.4); Monocytes # 0.8 K/mcL (0.0-1.3); Monocytes % 6.1 %; Neutrophils # 10.4 K/mcL (1.6-8.9); Platelet Count 160 K/mcL (140-400); Red Cell Distribution Width 14.3 % (11.5-14.5); Segmented Neutrophils % 81.7 %; White Blood Count 12.8 K/mcL (4.3-11.1)
[2019-05-30 01:37] LABS: BUN/Creatinine Ratio 20 (6-26); Blood Urea Nitrogen 27 mg/dL (8-23); Calcium 9.3 mg/dL (8.6-10.3); Carbon Dioxide 21 mEq/L (23-29); Chloride 112 mEq/L (98-107); Glucose 96 mg/dL (70-105); Osmolality,Calculated 297 (280-300); Potassium 3.7 mEq/L (3.5-5.1); Sodium 141 mEq/L (136-145); eGFR For African Americans > 60 (> 60); eGFR For Non-African Americans 50 (> 60)
[2019-05-30] MEDS: amLODIPine 5 MG TABLET PO SCH (08:54)
[2019-05-30] MEDS: Aspirin Enteric Coated 81 MG Tablet PO SCH (09:24)
[2019-05-30] MEDS ORDERED: Lidocaine HCL 4 ML Topical Solution (Laryng-O-Jet Kit Sterile Pak) TP ONE (09:47)
[2019-05-30] MEDS ORDERED: Lidocaine -MPF 2% 2 ML VIAL ONE (09:47)
[2019-05-30] MEDS ORDERED: *HR* Rocuronium Bromide 50 MG/5 ML VIAL ONE ×2 (09:47→12:10)
[2019-05-30] MEDS ORDERED: *HR* FentaNYL (PF) 100 MCG/2 ML VIAL ONE ×2 (09:47→11:55)
[2019-05-30] MEDS ORDERED: Ondansetron 4 MG/2 ML VIAL ONE (09:47)
[2019-05-30] MEDS ORDERED: Dexamethasone 4 MG/ML VIAL ONE (09:47)
[2019-05-30] MEDS ORDERED: *HR* Midazolam HCl 2 MG/2 ML VIAL ONE (09:47)
[2019-05-30] MEDS ORDERED: *HR* Propofol 200 MG/20 ML VIAL IVP ONE (09:48)
[2019-05-30] MEDS ORDERED: Ropivacaine/PF 0.5% 30 ML VIAL ONE (09:58)
[2019-05-30] MEDS ORDERED: Albuterol 2.5 MG/3 ML NEBULIZER IH PRN ×2 (11:37→14:17)
[2019-05-30] MEDS ORDERED: *HR* Promethazine 25 MG/ML VIAL IVP PRN ×2 (11:37→14:17)
[2019-05-30] MEDS ORDERED: *HR* OxyCODONE Immed Rel 5 MG TABLET PO PRN ×2 (11:37→14:17)
[2019-05-30] MEDS ORDERED: Ondansetron 4 MG/2 ML VIAL IVP ONE ×2 (11:37→14:17)
[2019-05-30] MEDS ORDERED: *HR* Labetalol 20 MG/4 ML SYRINGE IVP PRN ×3 (11:37→14:17)
[2019-05-30] MEDS ORDERED: Morphine Sulfate 2 MG/ML SYRINGE IVP PRN ×2 (11:39→14:17)
[2019-05-30] MEDS ORDERED: Ondansetron 4 MG/2 ML VIAL IVP PRN (14:17)
[2019-05-30] MEDS ORDERED: Heparin 25,000 UNIT/250 ML D5W 25,000 UNIT/250 ML IV.SOLN IVC SCH (14:17)
[2019-05-30] MEDS ORDERED: *HR* Heparin 5,000 UNIT/ML VIAL IVP PRN ×2 (14:17)
[2019-05-30] MEDS ORDERED: Ipratropium/Albuterol Neb 3 ML IH PRN (14:17)
[2019-05-30] MEDS ORDERED: Acetaminophen 650 MG RECTAL SUPP RC PRN (14:17)
[2019-05-30] MEDS ORDERED: ceFAZolin 1,000 MG, Sodium Chloride IRRigation 1,000 ML IR ONE ×2 (14:50)
[2019-05-30] MEDS: Acetaminophen 325 MG TABLET PO PRN (19:50)
[2019-05-31 01:44] LABS: Hematocrit 33.6 % (37.5-50.1); Hemoglobin 10.4 g/dL (12.9-16.9); Immature Granulocytes % 0.5 % (0-4); Lymphocytes # 0.7 K/mcL (0.6-4.6); Lymphocytes % 5.7 %; Mean Corpuscular Hemoglobin 31.4 pg (28.0-33.3); Mean Corpuscular Volume 101.5 fL (83.0-100.0); Mean Platelet Volume 11.1 fL (9.4-12.4); Monocytes # 0.5 K/mcL (0.0-1.3); Monocytes % 4.1 %; Neutrophils # 10.7 K/mcL (1.6-8.9); Platelet Count 150 K/mcL (140-400); Red Blood Count 3.31 M/mcL (4.19-5.50); Red Cell Distribution Width 14.1 % (11.5-14.5); Segmented Neutrophils % 89.7 %
[2019-05-31 02:03] LABS: BUN/Creatinine Ratio 20 (6-26); Blood Urea Nitrogen 26 mg/dL (8-23); Calcium 9.4 mg/dL (8.6-10.3); Carbon Dioxide 19 mEq/L (23-29); Chloride 114 mEq/L (98-107); Glucose 155 mg/dL (70-105); Osmolality,Calculated 296 (280-300); Potassium 4.5 mEq/L (3.5-5.1); Sodium 139 mEq/L (136-145); eGFR For African Americans > 60 (> 60); eGFR For Non-African Americans 55 (> 60)
[2019-05-31] MEDS: Acetaminophen 325 MG TABLET PO PRN (03:31)
[2019-05-31] MEDS: 0.9 % Sodium Chloride 1,000 ML IVC SCH ×2 (03:32→17:04)
[2019-05-31] MEDS: Piperacillin/Tazobactam 3.375 GM in 0.9 % Sodium Chloride Mini Bag 100 ML IVPB SCH (07:41)
[2019-05-31] MEDS: Aspirin Enteric Coated 81 MG Tablet PO SCH (07:41)
[2019-05-31] MEDS: amLODIPine 5 MG TABLET PO SCH (07:41)
[2019-05-31] MEDS: Acetaminophen IV 1,000 MG/100 ML INFUS..BTL IVPB SCH ×3 (10:37→23:42)
[2019-05-31] MEDS: Haloperidol Lactate 5 MG/ML VIAL IVP PRN (12:57)
[2019-05-31] MEDS ORDERED: Aminoglycoside Consult 1 EACH MC ONE (14:28)
[2019-05-31] MEDS: ALPRAZolam 1 MG TABLET PO PRN ×2 (17:02→21:15)
[2019-06-01] MEDS: Haloperidol Lactate 5 MG/ML VIAL IVP PRN ×2 (01:04→06:35)
[2019-06-01 02:34] LABS: Basophils % 0.2 %; Hematocrit 32.2 % (37.5-50.1); Hemoglobin 10.1 g/dL (12.9-16.9); Lymphocytes # 1.3 K/mcL (0.6-4.6); Lymphocytes % 10.7 %; Mean Corpuscular HGB Conc 31.4 g/dL (31.6-35.5); Mean Corpuscular Volume 98.8 fL (83.0-100.0); Mean Platelet Volume 11.4 fL (9.4-12.4); Monocytes # 0.9 K/mcL (0.0-1.3); Monocytes % 7.3 %; Neutrophils # 10.1 K/mcL (1.6-8.9); Platelet Count 157 K/mcL (140-400); Red Blood Count 3.26 M/mcL (4.19-5.50); Red Cell Distribution Width 13.9 % (11.5-14.5); Segmented Neutrophils % 80.8 %; White Blood Count 12.5 K/mcL (4.3-11.1)
[2019-06-01 02:51] LABS: Calcium 9.4 mg/dL (8.6-10.3)
[2019-06-01] MEDS: 0.9 % Sodium Chloride 1,000 ML IVC SCH (05:36)
[2019-06-01] MEDS: Aspirin Enteric Coated 81 MG Tablet PO SCH (08:25)
[2019-06-01] MEDS: amLODIPine 5 MG TABLET PO SCH (08:25)
[2019-06-01] MEDS: Acetaminophen IV 1,000 MG/100 ML INFUS..BTL IVPB SCH (10:31)
[2019-06-01 11:38] VITALS: BP 178/80
== END 2019-06-01 14:29 | DRG 240 ==
LOC: EMEROOARM 11:51 → 2NNU 11:51 → SUATTDRO 15:18
PROVIDERS: ADMIT Pharmacist; ATTEND Internal Medicine